=== PATIENT | female | born 1945 | race Caucasian/White ===

== ENCOUNTER 2020-08-11 11:10 | Outpatient (REF) | payer MEDICARE, SELFPAY ==
[2020-08-11 13:39] LABS: MANUAL DIFF FLAG NO
[2020-08-11 13:42] LABS: Basophils Percent Auto 0.5 % (0-2); Eosinophils Absolute Auto 0.2 X10*3/uL (0.0-0.4); Eosinophils Percent Auto 3.9 % (0-4); Hemoglobin 14.5 g/dl (12.0-16.0); Imm Gran Abs Auto 0.01 X10*3/uL (0.00-0.03); Imm Gran Pct Auto 0.2 % (0.0-0.4); Lymphocytes Absolute Auto 1.6 X10*3/uL (1.2-4.9); Lymphocytes Percent Auto 39.1 % (20-40); Mean Corpuscular HGB Conc 32.2 g/dl (31.0-35.0); Mean Platelet Volume 10.3 fL (9.4-12.3); Monocytes Absolute Auto 0.4 X10*3/uL (0.1-1.2); Neutrophils Absolute Auto 1.9 X10*3/uL (2.0-8.3); Neutrophils Percent Auto 47.3 % (45-73); Platelet Count 184 X10*3/uL (160-400); Red Blood Count 4.84 X10*6/uL (4.20-5.50); Red Cell Distribution Width 12.7 % (11.0-16.0); White Blood Count 4.1 X10*3/uL (4.8-10.8)
[2020-08-11 14:11] LABS: Alanine Aminotransferase 21 U/L (0-31); Albumin Level 4.2 g/dL (3.5-5.0); Alkaline Phosphatase 98 U/L (39-117); Anion Gap 12 (12-20); Aspartate Amino Transferase 32 U/L (5-31); Bilirubin Total 1.1 mg/dL (0.0-1.0); Blood Urea Nitrogen 14 mg/dL (9-16); C Reactive Protein 0.09 mg/dL (< or = 0.50); Calcium 9.5 mg/dL (8.4-10.2); Carbon Dioxide 29 mmol/L (22-29); Chloride 107 mmol/L (96-108); Estimated Glomerular Filt Rate > 60; Potassium 4.8 mmol/l (3.3-5.1); Sodium 143 mmol/L (135-145); Total Protein 6.4 g/dL (6.5-8.0)
[2020-08-11 14:20] LABS: Glucose Random 87 mg/dL (60-115)
[2020-08-11 14:35] LABS: Free T4 (Free Thyroxine) 1.33 ng/dL (0.71-1.85); Thyroid Stimulating Hormone 0.38 mIU/mL (0.32-4.0)
== END 2020-08-11 11:11 | disposition home or self-care (01) ==
LOC: HO.10HDL 11:10
PROVIDERS: Visit Provider Internal Medicine
DX: I10 Essential (primary) hypertension (principal); E03.9 Hypothyroidism, unspecified; R42 Dizziness and giddiness
CPT/HCPCS: 36415; 80053; 84439; 84443; 85025; 86140

== ENCOUNTER 2021-02-01 13:40 | Outpatient (REF) | payer MEDICARE, SELFPAY ==
--- NOTE | ~2021-02-01 | MM_ITS ---
EXAMINATION: MM SCREENING DIGITAL BREAST TOMOSYNTHESIS, BILATERAL CLINICAL INFORMATION: Screening. Asymptomatic. The lifetime risk of breast cancer based on the Tyrer-Cuzick Model is 2%. COMPARISON: Mammography: 06/03/2019, 04/10/2018, 03/27/2017 TECHNIQUE: Digital breast tomosynthesis is performed in both the craniocaudal and mediolateral oblique views along with computer-aided detection (CAD). Synthesized 2D images are generated from the tomosynthesis. FINDINGS: There are scattered areas of fibroglandular density (ACR BI-RADS breast composition Category b). There are no significant masses, abnormal calcifications, or other abnormalities. The axilla and skin contours are unremarkable. MM/MM tomosynthesis screening BI IMPRESSION: No mammographic evidence of malignancy. ASSESSMENT: BI-RADS 1: Negative RECOMMENDATION: Routine annual mammography screening. This patient's information was entered into a reminder system with a target due date for their next mammogram.
== END 2021-02-01 13:41 | disposition home or self-care (01) ==
LOC: HO.MAMMO 13:40
PROVIDERS: PCP Internal Medicine; Visit Provider Internal Medicine
DX: Z12.31 Encounter for screening mammogram for malignant neoplasm of breast (principal)
CPT/HCPCS: 77063; 77067

== ENCOUNTER 2021-02-11 10:17 | Outpatient (REF) | payer MEDICARE, SELFPAY ==
--- NOTE | ~2021-02-11 | XR_ITS ---
EXAMINATION: XR HAND, RIGHT CLINICAL INFORMATION: Right thumb pain. COMPARISON: 04/13/2014 TECHNIQUE: PA, lateral, and oblique views of the right hand. FINDINGS: There is osteopenia of visualized bones. No acute fracture or dislocation is evident. Joint spaces are generally maintained. There is stable degenerative narrowing of the triscaphe joint. There is mild spurring about the 1st carpometacarpal joint. Joint spaces are generally maintained. There is some degenerative spurring with erosion/subchondral cyst formation 1st interphalangeal joint. There is spurring about the 2nd distal interphalangeal joint. XR/XR hand RT min 3V IMPRESSION: Diffuse osteopenia. No acute fracture or dislocation. Some degenerative change seen involving the 1st carpometacarpal joint, triscaphe joint, 1st interphalangeal joint, and 2nd distal interphalangeal joint.
--- NOTE | ~2021-02-11 | XR_ITS ---
EXAMINATION: XR CHEST CLINICAL INFORMATION: Hypertension. COMPARISON: 06/20/2017 TECHNIQUE: Two views of the chest were obtained. FINDINGS: There is stable anterior elevation of the right hemidiaphragm with some linear scarring within the right middle lobe. No acute parenchymal disease, pneumothorax, or pleural effusion. Heart normal size. No evidence of pulmonary edema. There is scoliosis at the thoracolumbar junction convex right. XR/XR chest 2V IMPRESSION: No acute disease.
[2021-02-11 14:14] LABS: MANUAL DIFF FLAG NO
[2021-02-11 14:23] LABS: Basophils Percent Auto 0.5 % (0-2); Eosinophils Absolute Auto 0.1 X10*3/uL (0.0-0.4); Eosinophils Percent Auto 3.4 % (0-4); Hematocrit 45.8 % (37-47); Hemoglobin 14.9 g/dl (12.0-16.0); Imm Gran Abs Auto 0.01 X10*3/uL (0.00-0.03); Imm Gran Pct Auto 0.2 % (0.0-0.4); Lymphocytes Absolute Auto 1.4 X10*3/uL (1.2-4.9); Mean Corpuscular HGB Conc 32.5 g/dl (31.0-35.0); Mean Corpuscular Volume 92.2 fL (80-98); Mean Platelet Volume 10.7 fL (9.4-12.3); Monocytes Absolute Auto 0.4 X10*3/uL (0.1-1.2); Neutrophils Absolute Auto 2.1 X10*3/uL (2.0-8.3); Neutrophils Percent Auto 51.9 % (45-73); Platelet Count 180 X10*3/uL (160-400); Red Blood Count 4.97 X10*6/uL (4.20-5.50); Red Cell Distribution Width 12.6 % (11.0-16.0); White Blood Count 4.1 X10*3/uL (4.8-10.8)
[2021-02-11 14:36] LABS: Alanine Aminotransferase 17 U/L (0-31); Albumin Level 4.3 g/dL (3.5-5.0); Alkaline Phosphatase 91 U/L (39-117); Anion Gap 15 (12-20); Aspartate Amino Transferase 24 U/L (5-31); Bilirubin Total 1.3 mg/dL (0.0-1.0); Blood Urea Nitrogen 18 mg/dL (9-16); Calcium 10.1 mg/dL (8.4-10.2); Carbon Dioxide 27 mmol/L (22-29); Chloride 106 mmol/L (96-108); Cholesterol 161 mg/dL; Estimated Glomerular Filt Rate 60; Glucose Fasting 81 mg/dL (60-99); HDL Cholesterol 57 mg/dL; LDL Cholesterol Calculated 80 mg/dl; Potassium 4.5 mmol/L (3.3-5.1); Sodium 143 mmol/L (135-145); Total Protein 6.5 g/dL (6.5-8.0); Triglycerides 123 mg/dL
[2021-02-11 14:59] LABS: Free T4 (Free Thyroxine) 1.29 ng/dL (0.71-1.85)
== END 2021-02-11 10:18 | disposition home or self-care (01) ==
LOC: HO.10HDL 10:17
PROVIDERS: Visit Provider Internal Medicine
DX: M79.644 Pain in right finger(s) (principal); R49.0 Dysphonia; I10 Essential (primary) hypertension; E03.9 Hypothyroidism, unspecified
CPT/HCPCS: 36415; 71046; 73130; 80053; 80061; 84439; 84443; 85025

== ENCOUNTER → 2021-02-22 13:42 | Outpatient (BNVA) | payer MEDICARE, SELFPAY | PROVIDERS: PCP Internal Medicine; Visit Provider Orthopaedic Surgery | DX: M18.11 Unilateral primary osteoarthritis of first carpometacarpal joint, right hand (principal) | CPT/HCPCS: 99202 ==

== ENCOUNTER 2021-11-17 10:12 | Outpatient (REF) | payer MEDICARE, SELFPAY ==
[2021-11-17 13:49] LABS: MANUAL DIFF FLAG NO
[2021-11-17 14:02] LABS: Basophils Percent Auto 0.6 % (0-2); Eosinophils Absolute Auto 0.1 X10*3/uL (0.0-0.4); Eosinophils Percent Auto 3.9 % (0-4); Hematocrit 43.9 % (37.0-47.0); Hemoglobin 14.3 g/dl (12.0-16.0); Lymphocytes Absolute Auto 1.3 X10*3/uL (1.2-4.9); Lymphocytes Percent Auto 37.6 % (20-40); Mean Corpuscular HGB Conc 32.6 g/dl (31.0-35.0); Mean Platelet Volume 10.2 fL (9.4-12.3); Monocytes Absolute Auto 0.4 X10*3/uL (0.1-1.2); Monocytes Percent Auto 10.7 % (2-11); Neutrophils Absolute Auto 1.6 x10*3/uL (2.0-8.3); Neutrophils Percent Auto 47.2 % (45-73); Platelet Count 167 X10*3/uL (160-400); Red Blood Count 4.77 X10*6/uL (4.20-5.50); Red Cell Distribution Width 12.5 % (11.0-16.0); White Blood Count 3.4 X10*3/uL (4.8-10.8)
[2021-11-17 14:32] LABS: Free T4 (Free Thyroxine) 1.17 ng/dL (0.71-1.85); Thyroid Stimulating Hormone 0.38 uIU/mL (0.32-4.0)
[2021-11-17 14:38] LABS: Alanine Aminotransferase 16 U/L (0-31); Albumin Level 4.1 g/dL (3.5-5.0); Alkaline Phosphatase 86 U/L (39-117); Anion Gap 9 (12-20); Aspartate Amino Transferase 26 U/L (5-31); Bilirubin Total 1.3 mg/dL (0.0-1.0); Carbon Dioxide 29 mmol/L (22-29); Chloride 106 mmol/L (96-108); Cholesterol 155 mg/dL; Estimated Glomerular Filt Rate > 60; Glucose Fasting 90 mg/dL (60-99); HDL Cholesterol 58 mg/dL; LDL Cholesterol Calculated 75 mg/dl; Potassium 4.4 mmol/L (3.3-5.1); Sodium 140 mmol/L (135-145); Total Protein 6.3 g/dL (6.5-8.0); Triglycerides 114 mg/dL
[2021-11-17 15:45] LABS: Blood Urea Nitrogen 17 mg/dL (9-16); Calcium 10.2 mg/dL (8.4-10.2)
== END 2021-11-17 10:13 | disposition home or self-care (01) ==
LOC: HO.10HDL 10:12
PROVIDERS: Visit Provider Internal Medicine
DX: I10 Essential (primary) hypertension (principal); E03.9 Hypothyroidism, unspecified; E78.00 Pure hypercholesterolemia, unspecified
CPT/HCPCS: 36415; 80053; 80061; 84439; 84443; 85025

== ENCOUNTER 2021-12-06 08:27 | Day surgery (SDC) | payer MEDICARE, SELFPAY ==
[2021-11-26 09:16] VITALS: BMI 25.4
--- NOTE | 2021-12-02 16:35 | MHC.SHP ---
Pre-Procedural Eval Section A Date of Service: 12/02/21 The patient is an INPATIENT: No Changes since office visit: No Cold of Flu in the past 2 weeks, No New Medical Problems, No Changes in Medication and No Patient answered all questions The History & Physical has been completed within 30 days and I have reviewed it.: Yes Section B Chief Complaint: cataract left eye Allergies: Allergies Allergy/AdvReac Type Severity Reaction Status Date / Time No Known Allergies Allergy Verified 11/26/21 09:14 [No Known Allergies*] Plan Diagnosis/Plan: Unchanged I have reviewed the history and physical and performed a pertinent physical examination on my patient. No changes have occurred unless specified.
--- NOTE | 2021-12-03 13:47 | HP_ITS ---
DATE OF SERVICE: 12/06/2021 HISTORY OF PRESENT ILLNESS: The patient is a 76-year-old female who is seen 11/24/2021, for preop evaluation prior to cataract surgery scheduled for 12/06/[address] Clark. The patient states she feels well. PRESENT MEDICATIONS: Lisinopril 5 mg a day, levothyroxine 0.075 mg a day, simvastatin 20 mg a day, calcium and vitamin D. PAST MEDICAL HISTORY: Significant for vertigo, hypertension, hypothyroidism, elevated cholesterol, appendix at 17, one normal , fractured neck at 5 years old. No reported allergies to medicines. Some chronic back pain. History of left hip fracture, carpal tunnel syndrome, eczema, left biceps tendon irritation, left hip bursitis, and osteoarthritis of the thumbs. FAMILY HISTORY: Mother from lung cancer. Father from coronary artery disease. One brother from stomach cancer. One sister from lung cancer. She had Pfizer x2 as of last year, has had a booster I believe. SOCIAL HISTORY: She is . Retired. Has 1 son. She is a nonsmoker. REVIEW OF SYSTEMS: Essentially noncontributory except for occasional vertigo. PHYSICAL EXAMINATION: GENERAL: She is awake and alert, in no distress. VITAL SIGNS: Temperature 97.7, pulse 62, respirations 12, blood pressure 136/84, 99% oxygen saturation on room air. Weight is 128. She is 4 feet 11 inches tall. No distress. HEENT: Pupils equal. Pharynx clear. TMs clear. She has wax in the canals. HEART: Sounds S1 and S2. Regular rate. LUNGS: Clear. ABDOMEN: Soft, nontender. Positive bowel sounds. No HSM. EXTREMITIES: No clubbing, cyanosis, or edema. 1+ pulses. NEUROLOGIC: Nonfocal. Cranial nerves II through XII are intact. ASSESSMENT AND PLAN: She is medically stable for the proposed procedure. She had labs done on November 17, which are available on [facility]. MD [place] Mitchell/SELINAL / [id number]
--- NOTE | 2021-12-03 14:12 | P.CONAN_ITS ---
Documented by User: Lauren Bhagat NP 12/03/21 14:13 HPI - Anesthesia Eval Consult details Narrative: 76yo F for Left Cataract Extraction IOL Insertion PCP cleared No previous cataract on record [facility] Active Problems Active Problems: All Active Problems (Updated 12/02/21 @ 10:33 by Helen Wright, PRASAD) Arthritis of carpometacarpal (CMC) joint of right thumb (Acute) Past Medical History Medical History (Updated 12/02/21 @ 10:33 by Helen Wright RN) Cataract High blood pressure High cholesterol Hypothyroidism Surgical History Surgical History (Updated 11/26/21 @ 09:14 by Helen Wright RN) History of hip surgery Hx of appendectomy Hx of colonoscopy Social History Social History (Updated 02/22/21 @ 14:58 by SAEED Aaron) Are you a primary healthcare sales representative to a significant other at home: No Do you presently have visiting nurse or other home services: No Patient Tobacco Use Status: Never used Tobacco Use of substances other than those prescribed or required for medical reasons: No Have you been hit, kicked, punched, or otherwise hurt by someone within the past year? If so, by whom?: No Are you DNR?: No Advance Directives: No Advance Directives Information Provided: Yes Advance Directives on File: No Recently lost weight without trying: No Current occupational status: retired Current occupation: rt handed Meds Allergies Allergy/AdvReac Type Severity Reaction Status Date / Time No Known Allergies Allergy Verified 12/06/21 08:47 [No Known Allergies*] Home Medications Medication Instructions Recorded Confirmed Last Taken Type levothyroxine 25 mcg tablet 25 mcg PO DAILY 02/22/21 12/06/21 12/06/21 07:20 History lisinopril 2.5 mg tablet 2.5 mg PO DAILY 02/22/21 11/26/21 Unknown History simvastatin 5 mg tablet 5 mg PO DAILY 02/22/21 11/26/21 Unknown History Vitamin D3 11/26/21 11/26/21 Unknown History calcium 11/26/21 Unknown History Exam Exam Date and Time: December 03, 2021 1412 Height,Weight and Vital Signs: Height 4 ft 11.5 in Weight 58.06 kg Pertinent Lab Results Pertinent Lab Results: Laboratory Tests 02/09/22 02/09/22 10:20 10:20 WBC 3.4 L Hgb 14.3 Hct 43.9 Plt Count 167 Sodium 140 Potassium 4.4 Chloride 106 Carbon Dioxide 29 BUN 17 H Creatinine 0.91 Assessment and Plan Assessment Anesthesia Assessment: Chart Reviewed Documented by User: Jerilyn Mathew MD 12/06/21 09:23 [facility] Past Medical History Medical History (Updated 12/02/21 @ 10:33 by Helen Wright, PRASAD) Cataract High blood pressure High cholesterol Hypothyroidism Family History Family history of problems with anesthesia: No Surgical History Surgical History (Updated 11/26/21 @ 09:14 by Helen Wright RN) History of hip surgery Hx of appendectomy Hx of colonoscopy History of Problems with Anesthesia: No Social History Social History (Updated 02/22/21 @ 14:58 by Elisha Raygoza [facility] Are you a primary healthcare sales representative to a significant other at home: No Do you presently have visiting nurse or other home services: No Patient Tobacco Use Status: Never used Tobacco Use of substances other than those prescribed or required for medical reasons: No Have you been hit, kicked, punched, or otherwise hurt by someone within the past year? If so, by whom?: No Are you DNR?: No Advance Directives: No Advance Directives Information Provided: Yes Advance Directives on File: No Recently lost weight without trying: No Current occupational status: retired Current occupation: rt handed Meds Allergies Allergy/AdvReac Type Severity Reaction Status Date / Time No Known Allergies Allergy Verified 12/06/21 08:47 [No Known Allergies*] Home Medications Medication Instructions Recorded Confirmed Last Taken Type levothyroxine 25 mcg tablet 25 mcg PO DAILY 02/22/21 12/06/21 12/06/21 07:20 History lisinopril 2.5 mg tablet 2.5 mg PO DAILY 02/22/21 11/26/21 Unknown History simvastatin 5 mg tablet 5 mg PO DAILY 02/22/21 11/26/21 Unknown History Vitamin D3 11/26/21 11/26/21 Unknown History calcium 11/26/21 Unknown History Exam Airway Mallampati Class: II TM Dist: >3cm Neck ROM: Full Heart: marguerite Lungs: cta Assessment and Plan Assessment Anesthesia Assessment: Anesthesia Plan Discussed and Chart Reviewed Final Anesthetic Review Family History of Problems with Anesthesia: No History of Problems with Anesthesia: No NPO: Yes ASA Class: II Final Preanesthetic Review: No Changes in Pt Med Stat, Meds/Allgs Chart Reviewed and Consent Obtained/Reviewed Patient Risk: Intermediate Procedure Risk: Intermediate Anesthetic Plan Anesthetic Plan: MAC: Disposition: Standard PACU
[2021-12-06 08:48] VITALS: BP 145/64; PULSE 48; RESP 16; TEMP 36.6; O2SAT 99
[2021-12-06] MEDS: Tetracaine HCl/PF 0.5% Oph Sol 4 ML DROPS 1 DROP EYE-LEFT (08:51)
[2021-12-06] MEDS: Tropicamide 1 % Ophth Sol 3 ML BTL 1 DROP EYE-LEFT ×3 (08:52→09:04)
[2021-12-06] MEDS: Phenylephrine HCL 2.5% Oph SoL 2 ML BOTTLE 1 DROP EYE-LEFT ×3 (08:56→09:08)
[2021-12-06] MEDS: Lactated Ringers 500 ML 50 ML IV (09:06)
--- NOTE | 2021-12-06 10:13 | HO.PNOPHT ---
Ophthalmology Procedure Procedure Date of Service: 12/06/21 Ophthalmology Viscoelastic: Healepi Duet Dual Pack Pro Ophthalmology Lenses: TECNIS US7259 (17.5) Procedure Notes: PREOPERATIVE DIAGNOSIS: Decreased visual acuity left eye secondary to cataract POSTOPERATIVE DIAGNOSIS: Same PROCEDURE: Left cataract extraction with intraocular lens insertion SURGEON: Hussein Clark M.D. ANESTHESIA: Topical/MAC ESTIMATED BLOOD LOSS: None COMPLICATIONS: None After obtaining informed consent, the patient was brought to the operation room suite and placed in the supine position. After adequate sedation per anesthesia, topical drops of Tetracaine were given to the left eye. The eye was then prepped and draped in the usual sterile fashion. The operating room microscope was then positioned over the operative eye and a lid speculum placed. A paracentesis was created. Viscoelastic was then instilled into the anterior chamber. A three plane incision was then created temporally, utilizing a 2.85 mm keratome. Capsulotomy forceps were then utilized to create a circular tear capsulotomy. Hydrodissection and hydrodelineation were carried out until adequate mobilization of the nucleus occurred. Phacoemulsification was then utilized to remove the dense central nucleus followed by removal of the cortical material utilizing the automated aspiration irrigation unit. Viscoat elastic was instilled into the posterior capsular bag followed by placement of a posterior chamber intraocular lens without difficulty. The residual Viscoat elastic was then removed utilizing the automated IA machine. The wound was check and found to be watertight. The patient tolerated the procedure well and the lid speculum was removed. Intracameral injection of Vigamox 0.1 mL followed by a subtenon injection of Kenalog-40 0.2 mL were administered. The patient will be seen in the a.m.
[2021-12-06 10:33] VITALS: BP 130/59; PULSE 48; RESP 16; TEMP 36.3; O2SAT 97
== END 2021-12-06 10:51 | disposition home or self-care (01) ==
PROVIDERS: PCP Internal Medicine; Visit Provider Ophthalmology
PROC: (CPT 66985; principal; 2021-12-06 10:20)
DX: H25.12 Age-related nuclear cataract, left eye (principal); H52.4 Presbyopia; H35.54 Dystrophies primarily involving the retinal pigment epithelium; I10 Essential (primary) hypertension; E03.9 Hypothyroidism, unspecified; E78.00 Pure hypercholesterolemia, unspecified; Z79.899 Other long term (current) drug therapy
CPT/HCPCS: 66984; J2250; J3010; J3300; V2632

== ENCOUNTER 2021-12-20 07:11 | Day surgery (SDC) | payer MEDICARE, SELFPAY ==
[2021-11-26 09:18] VITALS: BMI 25.4
--- NOTE | 2021-12-16 12:46 | MHC.SHP ---
Pre-Procedural Eval Section A Date of Service: 12/16/21 The patient is an INPATIENT: No Changes since office visit: No Cold of Flu in the past 2 weeks, No New Medical Problems, No Changes in Medication and No Patient answered all questions The History & Physical has been completed within 30 days and I have reviewed it.: Yes Section B Chief Complaint: cataract right eye Allergies: Allergies Allergy/AdvReac Type Severity Reaction Status Date / Time No Known Allergies Allergy Verified 12/06/21 08:47 [No Known Allergies*] Plan Diagnosis/Plan: Unchanged I have reviewed the history and physical and performed a pertinent physical examination on my patient. No changes have occurred unless specified.
--- NOTE | 2021-12-17 09:03 | P.CONAN_ITS ---
Documented by User: Lauren Bhagat NP 12/17/21 09:03 HPI - Anesthesia Eval Consult details Narrative: 76yo F for Right Cataract Multifocal with IOL Insertion PCP cleared Left eye done 12/06/21 with MAC: Fent 50, Midaz 1 PMFSH Active Problems Active Problems: All Active Problems (Updated 12/02/21 @ 10:33 by Helen Wright, PRASAD) Arthritis of carpometacarpal (CMC) joint of right thumb (Acute) Past Medical History Medical History (Updated 12/02/21 @ 10:33 by Helen Wright, PRASAD) Cataract High blood pressure High cholesterol Hypothyroidism Family History Family history of problems with anesthesia: No Surgical History Surgical History (Updated 11/26/21 @ 09:14 by Helen Wright RN) History of hip surgery Hx of appendectomy Hx of colonoscopy History of Problems with Anesthesia: No Social History Social History (Updated 02/22/21 @ 14:58 by SAEED Aaron) Are you a primary primary care coordinator to a significant other at home: No Do you presently have visiting nurse or other home services: No Patient Tobacco Use Status: Never used Tobacco Use of substances other than those prescribed or required for medical reasons: No Have you been hit, kicked, punched, or otherwise hurt by someone within the past year? If so, by whom?: No Are you DNR?: No Advance Directives: No Advance Directives Information Provided: Yes Advance Directives on File: No Current occupational status: retired Current occupation: rt handed Meds Allergies Allergy/AdvReac Type Severity Reaction Status Date / Time No Known Allergies Allergy Verified 12/06/21 08:47 [No Known Allergies*] Home Medications Medication Instructions Recorded Confirmed Last Taken Type levothyroxine 25 mcg tablet 25 mcg PO DAILY 02/22/21 12/06/21 12/06/21 07:20 History lisinopril 2.5 mg tablet 2.5 mg PO DAILY 02/22/21 11/26/21 Unknown History simvastatin 5 mg tablet 5 mg PO DAILY 02/22/21 11/26/21 Unknown History Vitamin D3 11/26/21 11/26/21 Unknown History calcium 11/26/21 Unknown History Exam Exam Date and Time: December 17, 2021 0903 Height,Weight and Vital Signs: Height 4 ft 11.5 in Weight 58.06 kg Assessment and Plan Assessment Anesthesia Assessment: Chart Reviewed Final Anesthetic Review Family History of Problems with Anesthesia: No History of Problems with Anesthesia: No Documented by User: Martinez Hernandez MD 12/20/21 08:14 [facility] Past Medical History Medical History (Updated 12/02/21 @ 10:33 by Helen Wright, PRASAD) Cataract High blood pressure High cholesterol Hypothyroidism Surgical History Surgical History (Updated 11/26/21 @ 09:14 by Helen Wright, PRASAD) History of hip surgery Hx of appendectomy Hx of colonoscopy Social History Social History (Updated 02/22/21 @ 14:58 by SAEED Aaron) Are you a primary primary care coordinator to a significant other at home: No Do you presently have visiting nurse or other home services: No Patient Tobacco Use Status: Never used Tobacco Use of substances other than those prescribed or required for medical reasons: No Have you been hit, kicked, punched, or otherwise hurt by someone within the past year? If so, by whom?: No Are you DNR?: No Advance Directives: No Advance Directives Information Provided: Yes Advance Directives on File: No Current occupational status: retired Current occupation: rt handed Meds Allergies Allergy/AdvReac Type Severity Reaction Status Date / Time No Known Allergies Allergy Verified 12/06/21 08:47 [No Known Allergies*] Home Medications Medication Instructions Recorded Confirmed Last Taken Type levothyroxine 25 mcg tablet 25 mcg PO DAILY 02/22/21 12/06/21 12/06/21 07:20 History lisinopril 2.5 mg tablet 2.5 mg PO DAILY 02/22/21 11/26/21 Unknown History simvastatin 5 mg tablet 5 mg PO DAILY 02/22/21 11/26/21 Unknown History Vitamin D3 11/26/21 11/26/21 Unknown History calcium 11/26/21 Unknown History Exam Airway Mallampati Class: II TM Dist: >3cm Neck ROM: Full Partial: Upper Loose/Missing/Broken Teeth: Yes Heart: [id number] Lungs: cta b/l Assessment and Plan Assessment Anesthesia Assessment: Anesthesia Plan Discussed Final Anesthetic Review NPO: Yes ASA Class: III Final Preanesthetic Review: No Changes in Pt Med Stat, Meds/Allgs Chart Reviewed, Consent Obtained/Reviewed and Anes Risks/Benef Reviewed Patient Risk: Intermediate Procedure Risk: Low Assessment/Block/Sedation in SS: Assess/Block/Sedation-SS Anesthetic Plan Anesthetic Plan: MAC:, Regional Block and Agree w/ Assess. and Plan Disposition: Standard PACU
--- NOTE | 2021-12-20 08:09 | PC.NURSE ---
md dacosta aware fo low heart rate. asymptomatic. a week from monday patient has an appt to have a air sampling and monitoring to be applied.
[2021-12-20] MEDS: Tetracaine HCl/PF 0.5% Oph Sol 4 ML DROPS 1 DROP EYE-RIGHT (08:12)
[2021-12-20] MEDS: Tropicamide 1 % Ophth Sol 3 ML BTL 1 DROP EYE-RIGHT ×3 (08:13→08:18)
[2021-12-20] MEDS: Phenylephrine HCL 2.5% Oph SoL 2 ML BOTTLE 1 DROP EYE-RIGHT ×3 (08:14→08:20)
[2021-12-20] MEDS: Lactated Ringers 500 ML 50 ML IV (08:18)
--- NOTE | 2021-12-20 09:22 | PC.NURSE ---
called md newell office and they are unable to sign off on the draft due to computer problems. they have already called IT for help. they have been working on it since monday. patiet still remainsmedcially clerted per md evans office. and per his history and physical note.
--- NOTE | 2021-12-20 09:27 | PC.NURSE ---
md dacosta aware of patients history and physical in draft form.
--- NOTE | 2021-12-20 09:40 | HO.PNOPHT ---
Ophthalmology Procedure Procedure Date of Service: 12/20/21 Ophthalmology Viscoelastic: Healepi Duet Dual Pack Pro Ophthalmology Lenses: TECNIS [id number] (17.5) Procedure Notes: PREOPERATIVE DIAGNOSIS: Decreased visual acuity right eye secondary to cataract POSTOPERATIVE DIAGNOSIS: Same PROCEDURE: Right cataract extraction with intraocular lens insertion SURGEON: Hussein Clark M.D. ANESTHESIA: Topical/MAC ESTIMATED BLOOD LOSS: None COMPLICATIONS: None After obtaining informed consent, the patient was brought to the operating room suite and placed in the supine position. After adequate sedation per anesthesia, topical drops of Tetracaine were given to the right eye. The eye was then prepped and draped in the usual sterile fashion. The operating room microscope was then positioned over the operative eye and a lid speculum placed. A paracentesis was created. Viscoelastic was then instilled into the anterior chamber. A three plane incision was then created temporally, utilizing a 2.85 mm keratome. Capsulotomy forceps were then utilized to create a circular tear capsulotomy. Hydrodissection and hydrodelineation were carried out until adequate mobilization of the nucleus occurred. Phacoemulsification was then utilized to remove the dense central nucleus followed by removal of the cortical material utilizing the automated aspiration irrigation unit. Viscoelastic was instilled into the posterior capsular bag followed by placement of a posterior chamber intraocular lens without difficulty. The residual Viscoelastic was then removed utilizing the automated IA machine. The wound was checked and found to be watertight. The patient tolerated the procedure well and the lid speculum was removed. Intracameral injection of Vigamox 0.1 mL followed by a subtenon injection of Kenalog-40 0.2 mL were administered. The patient will be seen in the a.m.
[2021-12-20 10:05] VITALS: BP 136/62; PULSE 51; RESP 16; TEMP 36.6; O2SAT 98
== END 2021-12-20 10:12 | disposition home or self-care (01) ==
PROVIDERS: PCP Internal Medicine; Visit Provider Ophthalmology
PROC: (CPT 66985; principal; 2021-12-20 09:50)
DX: H25.11 Age-related nuclear cataract, right eye (principal); H52.4 Presbyopia; H35.54 Dystrophies primarily involving the retinal pigment epithelium; I10 Essential (primary) hypertension; E03.9 Hypothyroidism, unspecified; E78.00 Pure hypercholesterolemia, unspecified; Z79.899 Other long term (current) drug therapy
CPT/HCPCS: 66984; J2250; J3300; V2632

== ENCOUNTER → 2021-12-27 14:41 | Outpatient (REF) | payer MEDICARE, SELFPAY ==
--- NOTE | 2021-12-27 15:04 | HM_ITS ---
* Total monitoring time 3 days 5 hours. * Underlying rhythm is sinus. Average rate 50/Min. Range 33 to 130/Min. About 63% of the time, rate less than 60/Min. * No atrial fibrillation or flutter or AV blocks or pauses. * Rare supraventricular and ventricular ectopy with minimal burden. * No patient events. MTDD
== END ==
LOC: HO.CARD 14:41
PROVIDERS: Visit Provider Internal Medicine
DX: R00.1 Bradycardia, unspecified (principal)
CPT/HCPCS: 93242

== ENCOUNTER 2022-02-07 09:02 | Outpatient (REF) | payer MEDICARE, SELFPAY ==
[2022-02-07 10:17] LABS: MANUAL DIFF FLAG NO
[2022-02-07 10:29] LABS: Basophils Percent Auto 0.6 % (0-2); Eosinophils Absolute Auto 0.1 X10*3/uL (0.0-0.4); Eosinophils Percent Auto 3.4 % (0-4); Hematocrit 44.5 % (37.0-47.0); Hemoglobin 14.5 g/dl (12.0-16.0); Lymphocytes Absolute Auto 1.4 X10*3/uL (1.2-4.9); Lymphocytes Percent Auto 38.5 % (20-40); Mean Corpuscular HGB Conc 32.6 g/dl (31.0-35.0); Mean Corpuscular Hemoglobin 30.5 pg (27.0-33.0); Mean Corpuscular Volume 93.5 fL (80.0-98.0); Monocytes Absolute Auto 0.4 X10*3/uL (0.1-1.2); Monocytes Percent Auto 10.7 % (2-11); Neutrophils Absolute Auto 1.7 x10*3/uL (2.0-8.3); Neutrophils Percent Auto 46.8 % (45-73); Platelet Count 170 X10*3/uL (160-400); Red Blood Count 4.76 X10*6/uL (4.20-5.50); White Blood Count 3.6 X10*3/uL (4.8-10.8)
[2022-02-07 10:58] LABS: Lactate Dehydrogenase 147 U/L (122-220)
== END 2022-02-07 09:03 | disposition home or self-care (01) ==
LOC: HO.10HDL 09:02
PROVIDERS: Visit Provider Internal Medicine
DX: I10 Essential (primary) hypertension (principal); D72.819 Decreased white blood cell count, unspecified
CPT/HCPCS: 36415; 83615; 85025

== ENCOUNTER 2022-02-09 09:40 | Outpatient (REF) | payer MEDICARE, SELFPAY ==
--- NOTE | ~2022-02-09 | MM_ITS ---
EXAMINATION: MM SCREENING DIGITAL BREAST TOMOSYNTHESIS, BILATERAL CLINICAL INFORMATION: Screening. Asymptomatic. The lifetime risk of breast cancer based on the Tyrer-Cuzick Model is 3%. COMPARISON: Mammography: 02/01/2021, 06/03/2019, 04/10/2018 TECHNIQUE: Digital breast tomosynthesis is performed in both the craniocaudal and mediolateral oblique views along with computer-aided detection (CAD). Synthesized 2D images are generated from the tomosynthesis. FINDINGS: There are scattered areas of fibroglandular density (ACR BI-RADS breast composition Category b). There are no significant masses, abnormal calcifications, or other abnormalities. Fibronodular parenchymal pattern is similar to prior studies. No developing density or architectural abnormality. The axilla are unremarkable. No significant changes. MM/MM tomosynthesis screening BI IMPRESSION: No mammographic evidence of malignancy. ASSESSMENT: BI-RADS 1: Negative RECOMMENDATION: Routine annual mammography screening. This patient's information was entered into a reminder system with a target due date for their next mammogram.
== END 2022-02-09 09:41 | disposition home or self-care (01) ==
LOC: HO.MAMMO 09:40
PROVIDERS: Visit Provider Advanced Practice Midwife
DX: Z12.31 Encounter for screening mammogram for malignant neoplasm of breast (principal)
CPT/HCPCS: 77063; 77067

== ENCOUNTER → 2022-06-20 10:35 | Outpatient (BNVA) | payer MEDICARE, SELFPAY | PROVIDERS: PCP Internal Medicine; Referring Provider Internal Medicine; Visit Provider Internal Medicine | DX: R00.1 Bradycardia, unspecified (principal); R55 Syncope and collapse; R07.2 Precordial pain; R03.0 Elevated blood-pressure reading, without diagnosis of hypertension | CPT/HCPCS: 93005; 99202 ==

== ENCOUNTER 2022-07-10 08:29 | Emergency (ER) | payer MEDICARE, SELFPAY ==
[2022-07-10 08:41] VITALS: BP 109/73; PULSE 68; RESP 18; TEMP 36.9; O2SAT 98; BMI 24.4
[2022-07-10 09:05] LABS: Strep A Nucleic Acid Negative (Negative)
[2022-07-10 09:06] LABS: COVID-19 Test Positive (Negative); IDNOW Serial# 55D5AD1C
--- NOTE | 2022-07-10 09:34 | ED.GENADULT ---
HPI - General Adult General Chief complaint: General Medical Stated complaint: Covid + Throat, ear pain Time Seen by Provider: 07/10/22 09:34 History of Present Illness HPI narrative: Patient complains of sore throat runny nose mild cough body aches and fatigue x1 day, her has COVID and just completed a treatment with Paxlovid and feels better but she did take a home test and tested positive for COVID this morning Related Data Home Medications Medication Instructions Recorded Confirmed Vitamin D3 11/26/21 06/20/22 calcium 11/26/21 06/20/22 levothyroxine 75 mcg tablet 75 mcg PO DAILY 06/20/22 06/20/22 losartan 25 mg tablet 25 mg PO DAILY 06/20/22 06/20/22 simvastatin 20 mg tablet 20 mg PO DAILY 06/20/22 06/20/22 Previous Rx's Medication Instructions Recorded acetaminophen 500 mg tablet 1,000 mg PO QID PRN pain #30 tabs 07/10/22 naproxen 500 mg tablet (Naprosyn) 500 mg PO BID PRN pain #14 tabs 07/10/22 nirmatrelvir 300 mg (150 mg See Rx Instructions PO .COMPLEX 07/10/22 x2)-ritonavir 100 mg tablet,dose #30 ea pack(EUA) (Paxlovid) Allergies Allergy/AdvReac Type Severity Reaction Status Date / Time No Known Allergies Allergy Verified 06/20/22 10:44 [No Known Allergies*] Review of Systems Review of Systems: Positive for sore throat body aches cough Negatives no fever no chills no dizziness no weakness no headache no confusion no stiff neck no difficulty breathing or swallowing no chest pain no shortness of breath no abdominal pain no nausea vomiting or diarrhea no dysuria no skin rash Yes all other systems are reviewed and are negative PMF Past Medical History Source: nursing notes reviewed Medical History (Updated 07/10/22 @ 10:40 by VERONICA Ruby) Cataract High blood pressure High cholesterol Hypothyroidism Surgical History History of hip surgery Hx of appendectomy Hx of colonoscopy Family History Family History (Updated 06/20/22 @ 10:45 by NILDA Rosenbaum) Father Heart attack Mother No problems noted. Social History Social History Are you a primary medicare insurance specialist to a significant other at home: No Do you presently have visiting nurse or other home services: No Patient Tobacco Use Status: Never used Tobacco Current occupational status: retired Current occupation: rt handed Physical Exam ED Vital Signs: Vital Signs - 24 hr 07/10/22 08:41 Temperature 98.4 F Pulse Rate 68 Respiratory Rate 18 Blood Pressure 109/73 Pulse Oximetry 98 Oxygen Delivery Method Room Air BMI result Body Mass Index 24.4 General appearance no distress Eyes no redness or discharge The nose no sinus tenderness The pharynx is clear without redness swelling or exudat, mucous membranes are moist, voice is normal The neck is supple Chest clear to auscultation bilateral Heart no murmur Abdomen is soft and nontender Extremities full range of motion x4 Skin no rash Course Course Course Narrative: COVID test was positive, and otherwise well-appearing patient was discharged with prescription for Paxil [place] after checking for possible interactions Medical Decision Making Lab Data Labs: Lab Results 07/10/22 07/10/22 Range/Units 08:46 08:46 COVID-19 (TIMA) Positive A (Negative) COVID-19 Clin Com See Note S. pyogenes GrpA ALLI Negative (Negative) Discharge Plan Discharge Clinical Impression: COVID-19 Patient Disposition: Home, Self-Care Additional Instructions: Your symptoms are from COVID and I am writing a prescription for Paxlovid DO NOT TAKE YOUR LEVOTHYROXINE THYROID MED, OR YOUR SIMVASTATIN CHOLESTEROL MEDICATION FOR 5 DAYS IT MAY INTERACT WITH THE PAXIL OVID AND CAUSE PROBLEMS It is okay to take her losartan Follow with primary doctor as needed Return to the ER any time any worse condition or any concerns Prescriptions: New Paxlovid (EUA) 300 mg (150 mg x 2)-100 mg tablets,dose pack See Rx Instructions .ROUTE .COMPLEX Qty: 30 0RF Rx Instructions: take TWO 150 mg tablets of nirmatrelvir with ONE 100 mg tablet of ritonavir twice daily for 5 days acetaminophen 500 mg tablet 1,000 mg PO QID PRN (Reason: pain) Qty: 30 0RF naproxen [Naprosyn] 500 mg tablet 500 mg PO BID PRN (Reason: pain) Qty: 14 0RF No Action Vitamin D3 calcium simvastatin 20 mg tablet 20 mg PO DAILY levothyroxine 75 mcg tablet 75 mcg PO DAILY losartan 25 mg tablet 25 mg PO DAILY Interventions: ED Discharge Assessment Last Done: 07/10/22 10:48 Discharge Date/Time: 07/10/22 10:49
--- OUTSIDE RECORDS SUMMARY | 2022-07-10 09:36 | XMS_ITS | Continuity of Care Document ---
:1945 Author Organization [facility] Address [address] [place] [id number] Care Team Providers Name Role Phone Cayetano Morris MD Primary Care Physician Encounter [facility] Date(s): 02/22/22 - 02/22/[address] [id number] Discharge Disposition: A-D/C Home Attending Physician: Delicia Osorio MD Admitting Physician: Delicia Osorio MD Referring Physician: Delicia Osorio MD Allergies, Adverse Reactions, Alerts No Known Allergies Immunizations Given and Recorded Vaccine Date Status Refusal Reason SARS-CoV-2 (COVID-19) mRNA BNT-162b2 vac 12/09/20 Given SARS-CoV-2 (COVID-19) mRNA BNT-162b2 vac 11/18/20 Given Medications levothyroxine 0.05 mg oral tablet 1 tablet = 50 mcg, By Mouth, Daily, 0 Refills, Maintenance, 02/22/22 12:22:00 EDT, Partial fill uponpatient request if the prescription is for a schedule II opioid drug. Start Date: 02/22/22 Status: Orderedsimvastatin 5 mg oral tablet 1 tablet = 5 mg, By Mouth, Daily at bedtime, 0 Refills, Maintenance, 02/22/22 12:22:00 EDT, Partial fill upon patient request if the prescription is for a schedule II opioid drug. Start Date: 02/22/22 Status: Ordered Vital Signs Most recent to oldest 1 2 3 [Reference Range]: Weight 58.2 kg (02/22/22 12:24 PM) Oxygen Saturation [94-100 %] 100 % 100 % 98 % (02/22/22 1:45 PM) (02/22/22 1:00 PM) (02/22/22 12: 45 PM) Pulse Rate [55-90 bpm] 52 bpm *L* (02/22/22 12:24 PM) Blood Pressure [90-138/55-84 154/63 mm Hg 164/62 mm Hg 147 /62 mm Hg mm Hg] *H* *H* *H* (02/22/22 1:45 PM) (02/22/22 1:00 PM) (02/22/22 12: 45 PM) Respiratory Rate [16-30 19 br/min 18 br/min 6 br/min br/min] (02/22/22 1:45 PM) (02/22/22 1:00 PM) *L* (02/22/22 12:45 P M) Temperature [96.8-100.4 97.5 DegF 98.6 DegF DegF] (02/22/22 1:45 PM) (02/22/22 12:24 PM) Liters per Minute 3 L/min (02/22/22 12:45 PM) Mode of Delivery (Oxygen) Nasal cannula Room air Nasal cannula (02/22/22 2:00 PM) (02/22/22 1:45 PM) (02/22/22 1:0 0 PM) Blood pressure sites Arm, right Arm, right Arm, right (02/22/22 1:45 PM) (02/22/22 1:00 PM) (02/22/22 12: 45 PM) Temperature Route Temporal Temporal (02/22/22 1:45 PM) (02/22/22 12:24 PM) Weight Obtained Via Standing scale (02/22/22 12:24 PM)
== END 2022-07-10 10:49 | disposition home or self-care (01) ==
PROVIDERS: Emergency Provider Emergency Medicine Emergency Medical Services; PCP Internal Medicine
DX: U07.1 COVID-19 (principal); R05.9 Cough, unspecified; Z79.899 Other long term (current) drug therapy
CPT/HCPCS: 36415; 87635; 87651; 99282; 99283

== ENCOUNTER 2022-07-22 08:56 | Outpatient (REF) | payer MEDICARE, SELFPAY ==
[2022-07-22 09:06] LABS: MANUAL DIFF FLAG NO
[2022-07-22 09:17] LABS: Basophils Percent Auto 0.6 % (0-2); Eosinophils Absolute Auto 0.2 X10*3/uL (0.0-0.4); Eosinophils Percent Auto 3.5 % (0-4); Hematocrit 43.6 % (37.0-47.0); Hemoglobin 14.4 g/dl (12.0-16.0); Imm Gran Abs Auto 0.01 X10*3/uL (0.00-0.03); Imm Gran Pct Auto 0.2 % (0.0-0.4); Lymphocytes Absolute Auto 1.4 X10*3/uL (1.2-4.9); Lymphocytes Percent Auto 27.9 % (20-40); Mean Corpuscular Hemoglobin 29.9 pg (27.0-33.0); Mean Corpuscular Volume 90.5 fL (80.0-98.0); Mean Platelet Volume 9.4 fL (9.4-12.3); Monocytes Absolute Auto 0.5 X10*3/uL (0.1-1.2); Neutrophils Absolute Auto 2.8 x10*3/uL (2.0-8.3); Neutrophils Percent Auto 56.8 % (45-73); Platelet Count 194 X10*3/uL (160-400); Red Blood Count 4.82 X10*6/uL (4.20-5.50); Red Cell Distribution Width 12.7 % (11.0-16.0); White Blood Count 4.8 X10*3/uL (4.8-10.8)
[2022-07-22 09:49] LABS: Alanine Aminotransferase 13 U/L (0-31); Albumin Level 4.1 g/dL (3.5-5.0); Alkaline Phosphatase 90 U/L (39-117); Anion Gap 14 (12-20); Aspartate Amino Transferase 24 U/L (5-31); Bilirubin Total 0.8 mg/dL (0.0-1.0); Blood Urea Nitrogen 14 mg/dL (9-16); Calcium 9.6 mg/dL (8.4-10.2); Carbon Dioxide 27 mmol/L (22-29); Chloride 106 mmol/L (96-108); Estimated Glomerular Filt Rate 60; Glucose Random 93 mg/dL (60-115); Potassium 5.2 mmol/L (3.3-5.1); Sodium 142 mmol/L (135-145); Total Protein 6.3 g/dL (6.5-8.0)
[2022-07-22 10:13] LABS: Free T4 (Free Thyroxine) 1.16 ng/dL (0.71-1.85); Thyroid Stimulating Hormone 3.22 uIU/mL (0.32-4.0)
== END 2022-07-22 08:57 | disposition home or self-care (01) ==
LOC: HO.LAB 08:56
PROVIDERS: PCP Internal Medicine; Visit Provider Internal Medicine
DX: I10 Essential (primary) hypertension (principal); E03.9 Hypothyroidism, unspecified
CPT/HCPCS: 36415; 80053; 84439; 84443; 85025

== ENCOUNTER → 2022-07-27 09:10 | Outpatient (REF) | payer MEDICARE, SELFPAY ==
--- NOTE | 2022-07-27 09:13 | CA_ITS ---
Acquisition Time: 2022-07-27 10:40:21 Total Exercise Time: 00:03:43 Test Indications: Syncope Medications: Protocol: MARTIN Max HR: 136 BPM 95% of Pred: 143 BPM Max BP: 204/082 mmHG Max Work Load: 5.4 METS Exercise stress test with exercise 3 min 43 sec of martin protocol, achieving 93% MPHR ( 85% MPHR at 3 min), with knee discomfort and request to stop, with mild sob, no chest discomfort, with isolated PACs and once ventricular cuplet, with baseline BP 154/62 which devon to 204/82 with exercise, with normal chronotropic response to exercise, without EKG changes meeting criteria for ischemia at achieved workload. In recovery her BP came down to 146/60 and heart rate returned to 61b/min. Test reviewed with Dr Ortega Referred By: Gabino Verdugo Overread By: ANDRES BAKER
--- NOTE | 2022-07-27 09:13 | CA_ITS ---
Transthoracic Echocardiogram Patient (Last, First, Middle): Glenda West, Gender: Female Date of : 1945 Age: 77 Procedure Date: 07/27/2022 Procedure Type: Transthoracic Echocardiogram Location: OP Height: 149.86 cm Weight: 57.61 kg BSA: 1.52 m2 Heart Rate: 56 bpm BP: 118 / 68 mmHg Electrical Prospecting Supervisor: SB Referring MD: Gabino Verdugo MD Symptoms: R55 - Syncope and collapse Study Quality: Adequate ECG Rhythm: Bradycardia Conclusions: - The left ventricular systolic function is normal. The calculated ejection fraction is 64% by biplane method. - No obvious valvular pathology seen on this study. Findings Left Ventricle Normal left ventricular cavity size. There is normal left ventricular wall thickness. The left ventricular systolic function is normal. The calculated ejection fraction is 64% by biplane method. There is no evidence of regional wall motion abnormalities. Diastolic function is normal for age. LV peak GLS -16.5% Right Ventricle Normal right ventricular cavity size. There is mildly decreased right ventricular systolic function. Atria Both atria are normal in size. Aortic Valve There is a normal trileaflet aortic valve. There is no aortic valve stenosis. There is no aortic valve regurgitation. Mitral Valve There is mild mitral annular calcification. There is no mitral valve regurgitation. There is no mitral valve stenosis. Pulmonic Valve The pulmonic valve is likely normal. Tricuspid Valve Normal tricuspid valve structure. There is trace tricuspid valve regurgitation. There is no evidence of pulmonary hypertension. Great Vessels The aortic annulus, sino tubular ridge, and asc aorta are normal in size. Venous The inferior vena cava was not well visualized. Pericardium/Pleural There is no evidence of pericardial effusion. Prior Study Comparison No prior study available for comparison. Recommendations, Care & Conclusions No obvious valvular pathology seen on this study. Measurements 2D Linear Measurements IVSd: 0.99 0.6-0.9/0.6-1.0 cm LVIDd: 4.57 3.9-5.3/4.2-5.9 cm LVIDd Index: 3.01 2.4-3.2/2.2-3.1 cm/m2 LVIDs: 2.61 2.0-3.6 cm LVPWd: 0.67 0.7-1.1 cm LA Diam: 3.50 2.7-3.8/3.0-4.0 cm LAIDs Index: 2.30 1.5-2.3 cm/m2 LV Mass: 152.94 67-162/88-224 g LV Mass Index: 100.62 43-95/49-115 g/m2 LVOT Diam: 1.90 3.0+(-)1.3 cm 2D Systolic Function EF 4C: 68.30 >55% EF 2C: 63.50 >55% EF BiP: 64.10 >55% Mitral Valve MV Pk E: 0.76 MV PK A: 0.90 MV Decel Time: 198.00 E/A: 0.80 E'Lateral: 6.96 E'Medial: 5.22 E/E' Med: 14.60 E/E' Lat: 11.00 PHT: 58.00 MVA PHT: 3.79 Decel [place]: 3.85 Aortic Valve AoV Pk Guy: 1.42 AoV Mn Guy: 0.89 AoV VTI: 0.29 AoV Pk Grad: 8.00 Aov Mn Grad: 4.00 WESLEY Cont.VTI: 2.28 LVOT LVOT Pk Guy: 0.94 LVOT Mn Guy: 0.59 LVOT VTI: 0.23 LVOT Pk Grad: 4.00 LVOT Mn Grad: 2.00 LVOT Diam: 1.90 LVOT Area: 2.84 Diastolic Function MV Pk E: 0.76 MV Pk A: 0.90 E/A: 0.80 E'Medial: 5.22 E/E' Med: 14.60 E' Laterial: 6.96 E/E' Lat: 11.00 Right Ventricle TAPSE (mm): 16.30 TVS' Guy: 10.20 Tricuspid Valve TR Pk Guy: 2.34 TR Pk Grad: 22.00 RA Press: 3.00 RVSP: 25.00 Great Vessels Aorta Sinus of Valsalva: 2.80 2.0-3.5 cm Ao Asc: 3.40 2.1-3.4 cm Pulmonary Valve PV Pk Guy: 0.96 Peak PV Grad: 4.00 Updated in Other Vendor System with Status of Final Gabino Verdugo MD electronically signed on 07/27/2022 10:39:30 AM with status of Final
== END ==
LOC: HO.CARD 09:10
PROVIDERS: PCP Internal Medicine; Visit Provider Internal Medicine
DX: R55 Syncope and collapse (principal); R07.2 Precordial pain; R00.1 Bradycardia, unspecified
CPT/HCPCS: 93017; 93306; 93356

== ENCOUNTER → 2022-08-23 11:40 | Outpatient (BNVA) | payer MEDICARE, SELFPAY | PROVIDERS: PCP Internal Medicine; Visit Provider Internal Medicine | DX: R00.1 Bradycardia, unspecified (principal) | CPT/HCPCS: 99212 ==

== ENCOUNTER 2023-08-07 11:58 | Outpatient (REF) | payer MEDICARE, SELFPAY ==
[2023-08-07 13:41] LABS: MANUAL DIFF FLAG NO
[2023-08-07 13:44] LABS: Basophils Percent Auto 0.8 % (0-2); Eosinophils Absolute Auto 0.1 X10*3/uL (0.0-0.4); Eosinophils Percent Auto 3.5 % (0-4); Hematocrit 45.7 % (37.0-47.0); Hemoglobin 14.9 g/dl (12.0-16.0); Imm Gran Abs Auto 0.01 X10*3/uL (0.00-0.03); Imm Gran Pct Auto 0.3 % (0.0-0.4); Lymphocytes Absolute Auto 1.4 X10*3/uL (1.2-4.9); Lymphocytes Percent Auto 37.1 % (20-40); Mean Corpuscular HGB Conc 32.6 g/dl (31.0-35.0); Mean Corpuscular Hemoglobin 30.3 pg (27.0-33.0); Mean Corpuscular Volume 93.1 fL (80.0-98.0); Mean Platelet Volume 10.2 fL (9.4-12.3); Monocytes Absolute Auto 0.3 X10*3/uL (0.1-1.2); Monocytes Percent Auto 8.8 % (2-11); Neutrophils Absolute Auto 1.9 x10*3/uL (2.0-8.3); Neutrophils Percent Auto 49.5 % (45-73); Platelet Count 183 X10*3/uL (160-400); Red Blood Count 4.91 X10*6/uL (4.20-5.50); Red Cell Distribution Width 13.2 % (11.0-16.0); White Blood Count 3.8 X10*3/uL (4.8-10.8)
[2023-08-07 14:01] LABS: Alanine Aminotransferase 12 U/L (0-31); Albumin Level 4.3 g/dL (3.5-5.0); Alkaline Phosphatase 84 U/L (39-117); Anion Gap 11 (12-20); Aspartate Amino Transferase 24 U/L (5-31); Bilirubin Total 0.9 mg/dL (0.0-1.0); Blood Urea Nitrogen 15 mg/dL (9-16); Calcium 10.8 mg/dL (8.4-10.2); Carbon Dioxide 27 mmol/L (22-29); Chloride 108 mmol/L (96-108); Cholesterol 164 mg/dL (<200); Estimated Glomerular Filt Rate > 60; Glucose Fasting 86 mg/dL (60-99); HDL Cholesterol 71 mg/dL (>40); LDL Cholesterol Calculated 75 mg/dL (<100); Potassium 4.4 mmol/L (3.3-5.1); Sodium 142 mmol/L (135-145); Total Protein 6.9 g/dL (6.5-8.0); Triglycerides 94 mg/dL (<150)
[2023-08-07 14:17] LABS: Free T4 (Free Thyroxine) 1.05 ng/dL (0.71-1.85); Thyroid Stimulating Hormone 1.79 uIU/mL (0.32-4.0)
== END 2023-08-07 11:59 | disposition home or self-care (01) ==
LOC: HO.10HDL 11:58
PROVIDERS: Visit Provider Internal Medicine
DX: I10 Essential (primary) hypertension (principal); E03.9 Hypothyroidism, unspecified; E78.00 Pure hypercholesterolemia, unspecified; M54.9 Dorsalgia, unspecified
CPT/HCPCS: 36415; 80053; 80061; 82306; 84439; 84443; 85025

== ENCOUNTER 2024-01-15 12:59 | Outpatient (REF) | payer MEDICARE, SELFPAY ==
[2024-01-15 13:10] LABS: MANUAL DIFF FLAG NO
[2024-01-15 13:22] LABS: Basophils Percent Auto 0.5 % (0-2); Eosinophils Absolute Auto 0.1 X10*3/uL (0.0-0.4); Eosinophils Percent Auto 2.6 % (0-4); Hemoglobin 15.4 g/dl (12.0-16.0); Lymphocytes Absolute Auto 1.5 X10*3/uL (1.2-4.9); Mean Corpuscular HGB Conc 33.5 g/dl (31.0-35.0); Mean Corpuscular Hemoglobin 30.6 pg (27.0-33.0); Mean Corpuscular Volume 91.5 fL (80.0-98.0); Mean Platelet Volume 9.5 fL (9.4-12.3); Monocytes Absolute Auto 0.4 X10*3/uL (0.1-1.2); Monocytes Percent Auto 8.8 % (2-11); Neutrophils Absolute Auto 2.3 x10*3/uL (2.0-8.3); Neutrophils Percent Auto 54.1 % (45-73); Platelet Count 161 X10*3/uL (160-400); Red Blood Count 5.03 X10*6/uL (4.20-5.50); Red Cell Distribution Width 12.8 % (11.0-16.0); White Blood Count 4.3 X10*3/uL (4.8-10.8)
[2024-01-15 14:07] LABS: Anion Gap 12 (12-20); Blood Urea Nitrogen 14 mg/dL (9-16); Calcium 10.5 mg/dL (8.4-10.2); Carbon Dioxide 27 mmol/L (22-29); Chloride 107 mmol/L (96-108); Estimated Glomerular Filt Rate 60; Glucose Random 77 mg/dL (60-115); Parathyroid Hormone Intact 101.6 pg/mL (8.7-77.1); Potassium 4.7 mmol/L (3.3-5.1); Sodium 141 mmol/L (135-145)
[2024-01-15 14:23] LABS: Free T4 (Free Thyroxine) 1.09 ng/dL (0.71-1.85); Thyroid Stimulating Hormone 3.93 uIU/mL (0.32-4.0)
== END 2024-01-15 13:00 | disposition home or self-care (01) ==
LOC: HO.LAB 12:59
PROVIDERS: PCP Internal Medicine; Visit Provider Internal Medicine
DX: E03.9 Hypothyroidism, unspecified (principal)
CPT/HCPCS: 36415; 80048; 83970; 84439; 84443; 85025

== ENCOUNTER 2024-06-12 10:11 | Outpatient (REF) | payer MEDICARE, SELFPAY ==
[2024-06-12 11:12] LABS: MANUAL DIFF FLAG NO
[2024-06-12 11:18] LABS: Basophils Percent Auto 0.7 % (0-2); Eosinophils Absolute Auto 0.1 X10*3/uL (0.0-0.4); Eosinophils Percent Auto 3.3 % (0-4); Hematocrit 44.8 % (37.0-47.0); Hemoglobin 14.7 g/dl (12.0-16.0); Lymphocytes Absolute Auto 1.7 X10*3/uL (1.2-4.9); Lymphocytes Percent Auto 39.5 % (20-40); Mean Corpuscular HGB Conc 32.8 g/dl (31.0-35.0); Mean Corpuscular Hemoglobin 30.2 pg (27.0-33.0); Mean Platelet Volume 9.9 fL (9.4-12.3); Monocytes Absolute Auto 0.5 X10*3/uL (0.1-1.2); Monocytes Percent Auto 10.6 % (2-11); Neutrophils Absolute Auto 1.9 x10*3/uL (2.0-8.3); Neutrophils Percent Auto 45.9 % (45-73); Platelet Count 177 X10*3/uL (160-400); Red Blood Count 4.87 X10*6/uL (4.20-5.50); Red Cell Distribution Width 12.8 % (11.0-16.0); White Blood Count 4.2 X10*3/uL (4.8-10.8)
[2024-06-12 11:55] LABS: Parathyroid Hormone Intact 118.6 pg/mL (8.7-77.1)
[2024-06-12 12:00] LABS: Alanine Aminotransferase 14 U/L (0-31); Albumin Level 4.2 g/dL (3.5-5.0); Alkaline Phosphatase 86 U/L (39-117); Anion Gap 11 (12-20); Aspartate Amino Transferase 24 U/L (5-31); Bilirubin Total 1.1 mg/dL (0.0-1.0); Blood Urea Nitrogen 15 mg/dL (9-16); Calcium 10.3 mg/dL (8.4-10.2); Carbon Dioxide 28 mmol/L (22-29); Chloride 108 mmol/L (96-108); Estimated Glomerular Filt Rate 55; Free T4 (Free Thyroxine) 1.25 ng/dL (0.71-1.85); Glucose Random 90 mg/dL (60-115); Sodium 142 mmol/L (135-145); Thyroid Stimulating Hormone 0.81 uIU/mL (0.32-4.0); Total Protein 6.7 g/dL (6.5-8.0)
== END 2024-06-12 10:12 | disposition home or self-care (01) ==
LOC: HO.10HDL 10:11
PROVIDERS: Visit Provider Internal Medicine
DX: I10 Essential (primary) hypertension (principal); E03.9 Hypothyroidism, unspecified; E78.00 Pure hypercholesterolemia, unspecified
CPT/HCPCS: 36415; 80053; 83970; 84439; 84443; 85025

== ENCOUNTER 2024-09-18 09:34 | Outpatient (REF) | payer MEDICARE, SELFPAY ==
[2024-09-18 11:26] LABS: Anion Gap 10 (12-20); Blood Urea Nitrogen 15 mg/dL (9-16); Calcium 9.9 mg/dL (8.4-10.2); Carbon Dioxide 28 mmol/L (22-29); Chloride 107 mmol/L (96-108); Cholesterol 155 mg/dL (<200); Estimated Glomerular Filt Rate 52; Glucose Fasting 85 mg/dL (60-99); HDL Cholesterol 65 mg/dL (>40); LDL Cholesterol Calculated 70 mg/dL (<100); Potassium 4.4 mmol/L (3.3-5.1); Sodium 141 mmol/L (135-145); Triglycerides 103 mg/dL (<150)
[2024-09-18 11:40] LABS: Vitamin D 25-OH Total 43.2 ng/mL (>30)
== END 2024-09-18 09:35 | disposition home or self-care (01) ==
LOC: HO.10HDL 09:34
PROVIDERS: Visit Provider Internal Medicine
DX: I10 Essential (primary) hypertension (principal); E78.00 Pure hypercholesterolemia, unspecified; E83.52 Hypercalcemia
CPT/HCPCS: 36415; 80048; 80061; 82306

== ENCOUNTER 2024-10-29 17:41 | Emergency (ER) | payer MEDICARE, SELFPAY ==
--- NOTE | ~2024-10-29 | CT_ITS ---
CLINICAL HISTORY: r lq pain ?ventral hernia CT abdomen and pelvis without contrast Comparison: CT/SR - PELVIS WITHOUT CONTRAST [id number] - 06/20/17 17:04 EDT Findings: No consolidation or effusion. Cholelithiasis. Abdominal solid organs unremarkable. No urolithiasis. No bowel obstruction, pneumoperitoneum, or pneumatosis. Moderate stool. Appendix not identified. 1.5 cm right ovarian cyst, previously 2.1 cm. Uterus and ovaries otherwise unremarkable. No ascites. Left subcapital femoral neck fracture is old with screw fixation. No hardware complications. IMPRESSION: 1. No ventral hernia. 2. Cholelithiasis without acute cholecystitis. 3. Small right ovarian cyst. Recommend yearly ultrasound follow-up. This document has been electronically signed by: Juanito López MD on 10/30/2024 01:11:33
[2024-10-29 18:33] VITALS: BP 135/78; PULSE 67; RESP 18; TEMP 36.7; O2SAT 99; BMI 25.3
--- NOTE | 2024-10-29 18:33 | ED.ABDPAIN ---
HPI - Abdominal Pain General Chief Complaint: Abdominal Pain Stated Complaint: pcp sent in belly button sore? Time Seen by Provider: 10/29/24 23:25 Source: patient Mode of arrival: ambulatory Limitations: no limitations History of Present Illness ED Provider: HPI narrative: Apparently patient fell backwards what 10 days ago while opening a door next day she noticed pain in the right lower abdomen especially when she gets up patient is status post appendectomy no history of hernia no nausea no vomiting no fever no chills no urinary symptoms Related Data Home Medications ?Medication ?Instructions ?Recorded ?Confirmed Vitamin D3 11/26/21 08/23/22 calcium 11/26/21 08/23/22 levothyroxine 75 mcg tablet 75 mcg PO DAILY 06/20/22 08/23/22 losartan 25 mg tablet 25 mg PO DAILY 06/20/22 08/23/22 simvastatin 20 mg tablet 20 mg PO DAILY 06/20/22 08/23/22 Previous Rx's ?Medication ?Instructions ?Recorded acetaminophen 500 mg tablet 1,000 mg (2 x 500 mg) PO QID PRN 07/10/22 pain #30 tabs naproxen 500 mg tablet (Naprosyn) 500 mg PO BID PRN pain #14 tabs 07/10/22 Allergies Allergy/AdvReac Type Severity Reaction Status Date / Time No Known Allergies Allergy Verified 10/29/24 18:35 [No Known Allergies*] Review of Systems Review of Systems Yes all other systems are reviewed and are negative [facility] Past Medical History Medical History Hypothyroidism Cataract High cholesterol High blood pressure Surgical History Hx of colonoscopy History of hip surgery Hx of appendectomy Family History Family History Father Heart attack Mother No problems noted. Social History Social History Are you a primary patient care coordinator to a significant other at home: No Do you presently have visiting nurse or other home services: No Patient Tobacco Use Status: Never used Tobacco Advance Directives: No Advance Directives Information Provided: Yes Current occupational status: retired Current occupation: rt handed Physical Exam ED Vital Signs: Vital Signs - 24 hr 10/29/24 18:33 Temperature 98.0 F Pulse Rate 67 Respiratory Rate 18 Blood Pressure 135/78 Pulse Oximetry 99 Oxygen Delivery Method Room Air BMI result Body Mass Index 25.3 Appearance: Alert. Oriented X3. No acute distress. Eyes: No pallor or icterus ENT: Pharynx normal. Oral Mucosa moist Neck: Normal inspection. Neck supple. CVS: Normal heart rate and rhythm. Pulses normal. Respiratory: No respiratory distress. Equal air entry bilateral, no wheezing/rales/rhonchi Abdomen: Soft and nontender. Bowel sounds are present, small 2x2 cm soft tissue mass palpable when patient tries to get up, no CVA tenderness Skin: Skin warm and dry. Normal skin color. Normal skin turgor. Extremities: No lower extremity edema. No calf tenderness Neuro: Oriented X 3. No motor deficit. Course Course Course Narrative: This is a Rapid Medical Examination (RME) performed by Hebert Lizama PA-C in triage. Full HPI, ROS, assessment and treatment plan per primary provider in the Main ED. 79 yo female presents to the ER for evaluation of a fall, landing on her back and hitting her head 1.5 weeks ago. she reports RLQ pain the day after she fell with difficulty urinating. pain is when she cough and goes to get up out of bed. on examination she has a nontender abdomen, no palpable masses w/ valsalva. sent in for evaluation by her PCP. Plan: labs and UA, imaging per primary provider Medical Decision Making Medical Decision Making [facility] Narrative: Patient clinically abdominal muscle strain/small hernia CT scan negative for hernia showed gallstones without cholecystitis and small ovarian cyst patient is otherwise without any significant pain at rest will discharge patient home advised not to strain all lift anything heavy Differential Diagnosis Differential Diagnoses: The differential diagnosis associated with the presentation includes Ventral hernia/diverticulitis/gallstones/kidney stone Lab Data [facility] Lab Attestation statement: I reviewed the patient's lab results. 10/29/24 18:51 10/29/24 18:51 Labs: Lab Results 10/29/24 Range/Units 18:51 WBC 5.0 (4.8-10.8) X10*3/uL RBC 4.85 (4.20-5.50) X10*6/uL Hgb 14.8 (12.0-16.0) g/dl Hct 44.1 (37.0-47.0) % MCV 90.9 (80.0-98.0) fL MCH 30.5 (27.0-33.0) pg MCHC 33.6 (31.0-35.0) g/dl RDW 12.8 (11.0-16.0) % Plt Count 177 (160-400) X10*3/uL MPV 9.1 L (9.4-12.3) fL Immature Gran % (Auto) 0.2 (0.0-0.4) % Neut % (Auto) 55.6 (45-73) % Lymph % (Auto) 30.9 (20-40) % [place] % (Auto) 9.9 (2-11) % Eos % (Auto) 3.0 (0-4) % Baso % (Auto) 0.4 (0-2) % Lymph # (Auto) 1.5 (1.2-4.9) X10*3/uL [place] # (Auto) 0.5 (0.1-1.2) X10*3/uL Eos # (Auto) 0.2 (0.0-0.4) X10*3/uL Baso # (Auto) 0.0 (0.0-0.2) X10*3/uL Abs Immat Gran (auto) 0.01 (0.00-0.03) X10*3/uL Absolute Neuts (auto) 2.8 (2.0-8.3) x10*3/uL Absolute Nucleated RBC 0.000 (0.0-0.012) X10*3/uL Nucleated RBC % (auto) 0.0 (0.0-0.2) /100WBC Sodium 143 (135-145) mmol/L Potassium 4.7 (3.3-5.1) mmol/L Chloride 109 H (96-108) mmol/L Carbon Dioxide 28 (22-29) mmol/L Anion Gap 11 L (12-20) BUN 18 H (9-16) mg/dL Creatinine 0.82 (0.5-1.4) mg/dL Estim Creat Clear Calc 42.7 Estimated GFR > 60 Random Glucose 111 (60-115) mg/dL Calcium 9.8 (8.4-10.2) mg/dL Magnesium 2.1 (1.6-2.6) mg/dL Total Bilirubin 0.7 (0.0-1.0) mg/dL Direct Bilirubin 0.2 (0.0-0.5) mg/dL AST 32 H (5-31) U/L ALT 19 (0-31) U/L Alkaline Phosphatase 96 (39-117) U/L Total Protein 7.0 (6.5-8.0) g/dL Albumin 4.2 (3.5-5.0) g/dL Urine Color Yellow Urine Appearance Clear Urine pH 5.5 (5.0-9.0) Ur Specific [place] <= 1.005 (1.005-1.025) Urine Protein Negative (Neg-Trace) mg/dL Urine Glucose (UA) Negative (Negative) mg/dL Urine Ketones Negative (Negative) mg/dL Urine Blood Negative (Negative) Urine Nitrite Negative (Negative) Ur Leukocyte Esterase Moderate (2+) H (Negative) Urine RBC 0-2 (0-2) /HPF Urine WBC 0-5 (0-5) /HPF Ur Squamous Epith Cells 0-2 (0-2) /HPF Urine Bacteria None Seen (None Seen) Hyaline Casts 0-2 (0-2) /LPF Discharge Plan Discharge Clinical Impression: Abdominal wall pain in right lower quadrant, Cholelithiasis, Other ovarian cyst, right side Patient Disposition: Home, Self-Care Instructions: Ovarian Cyst (ED), Gallstones (ED), Muscle Strain (ED) Additional Instructions: Likely have muscle strain off your abdominal wall muscles as the cause of the pain No clear-cut hernia was seen Do not lift anything heavy till you feel better You also have asymptomatic gallstones and small ovarian cysts Follow with your PCP as needed Prescriptions: No Action Vitamin D3 calcium acetaminophen 500 mg tablet 1,000 mg PO QID PRN (Reason: pain) Qty: 30 0RF naproxen [Naprosyn] 500 mg tablet 500 mg PO BID PRN (Reason: pain) Qty: 14 0RF simvastatin 20 mg tablet 20 mg PO DAILY levothyroxine 75 mcg tablet 75 mcg PO DAILY losartan 25 mg tablet 25 mg PO DAILY Print Language: Somali
[2024-10-29 18:56] LABS: MANUAL DIFF FLAG NO
[2024-10-29 18:57] LABS: Basophils Percent Auto 0.4 % (0-2); Eosinophils Absolute Auto 0.2 X10*3/uL (0.0-0.4); Hematocrit 44.1 % (37.0-47.0); Hemoglobin 14.8 g/dl (12.0-16.0); Imm Gran Abs Auto 0.01 X10*3/uL (0.00-0.03); Imm Gran Pct Auto 0.2 % (0.0-0.4); Lymphocytes Absolute Auto 1.5 X10*3/uL (1.2-4.9); Lymphocytes Percent Auto 30.9 % (20-40); Mean Corpuscular HGB Conc 33.6 g/dl (31.0-35.0); Mean Corpuscular Hemoglobin 30.5 pg (27.0-33.0); Mean Corpuscular Volume 90.9 fL (80.0-98.0); Mean Platelet Volume 9.1 fL (9.4-12.3); Monocytes Absolute Auto 0.5 X10*3/uL (0.1-1.2); Monocytes Percent Auto 9.9 % (2-11); Neutrophils Absolute Auto 2.8 x10*3/uL (2.0-8.3); Neutrophils Percent Auto 55.6 % (45-73); Platelet Count 177 X10*3/uL (160-400); Red Blood Count 4.85 X10*6/uL (4.20-5.50); Red Cell Distribution Width 12.8 % (11.0-16.0)
[2024-10-29 18:58] LABS: Appearance Urine Clear; Color Urine Yellow; Glucose Urine UA Negative (Negative); Leukocyte Esterase Urine Moderate (2+) (Negative); Nitrite Urine Negative (Negative); PH 5.5 (5.0-9.0); Specific Gravity - Urine <= 1.005 (1.005-1.025); UMIC TRIGGER UACC YES; Urine Blood Negative (Negative); Urine Ketones Negative (Negative); Urine Protein Negative (Neg-Trace)
[2024-10-29 19:11] LABS: Alanine Aminotransferase 19 U/L (0-31); Albumin Level 4.2 g/dL (3.5-5.0); Alkaline Phosphatase 96 U/L (39-117); Anion Gap 11 (12-20); Aspartate Amino Transferase 32 U/L (5-31); Bilirubin Direct 0.2 mg/dL (0.0-0.5); Bilirubin Total 0.7 mg/dL (0.0-1.0); Blood Urea Nitrogen 18 mg/dL (9-16); Calcium 9.8 mg/dL (8.4-10.2); Carbon Dioxide 28 mmol/L (22-29); Chloride 109 mmol/L (96-108); Creatinine Clr Calc Pharmacy 42.7; Estimated Glomerular Filt Rate > 60; Glucose Random 111 mg/dL (60-115); Magnesium 2.1 mg/dL (1.6-2.6); Potassium 4.7 mmol/L (3.3-5.1); Sodium 143 mmol/L (135-145)
[2024-10-29 19:30] LABS: Bacteria Urine None Seen (None Seen); Hyaline Casts Urine 0-2 /LPF (0-2); RBC Urine 0-2 /HPF (0-2); Squamous Epithelial Cell Urine 0-2 /HPF (0-2); UACC Culture Trigger YES; WBC Urine 0-5 /HPF (0-5)
[2024-10-30 01:46] VITALS: BP 151/72; PULSE 69; RESP 16; TEMP 36.5; O2SAT 98
--- NOTE | 2024-10-30 01:54 | PC.NURSE ---
pt a&o, sob or chest pain, pt ambulated with a steady gait, no sign of abdomen guarding, reviewed discharge instructions with pt. pt verbalized understanding upon discharge no sign of distress
[2024-10-30 01:55] VITALS: BP 151/72; PULSE 69; RESP 16; TEMP 36.5; O2SAT 98
== END 2024-10-30 01:56 | disposition home or self-care (01) ==
PROVIDERS: Physician Assistant; Emergency Provider Internal Medicine; PCP Internal Medicine
DX: N83.201 Unspecified ovarian cyst, right side (principal); R10.31 Right lower quadrant pain; R10.2 Pelvic and perineal pain; K80.20 Calculus of gallbladder without cholecystitis without obstruction; Z79.899 Other long term (current) drug therapy
CPT/HCPCS: 36415; 74176; 80048; 80076; 81001; 83735; 85025; 87086; 99284

== ENCOUNTER → 2024-10-30 | Outpatient (BNV) | payer MEDICARE, SELFPAY | PROVIDERS: Emergency Provider Internal Medicine; PCP Internal Medicine; Visit Provider Radiology Diagnostic Radiology | DX: R10.31 Right lower quadrant pain (principal) | CPT/HCPCS: 74176 ==

== ENCOUNTER 2025-01-20 12:59 | Outpatient (AMB) | payer MEDICARE, SELFPAY ==
[2025-01-20 13:11] VITALS: BP 124/80; PULSE 65; TEMP 36.3; O2SAT 98; BMI 25.2
--- NOTE | 2025-01-20 13:11 | MHC.PC.OV ---
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 Accompanied by: Self / Same As Patient Allergies No Known Allergies [No Known Allergies*] Allergy (Verified 01/20/25 13:11) Tobacco use date assessed: 01/20/25 Fall risk assessment: 1 Fall in past year Last assessed Fall Risk: 01/20/25 Dental Screening Dental Screen Date: 01/20/25 Did you have a dental visit in the last 12 months?: No Did you have a dental problem in the last 6 months where you did not have access to dental care?: No [facility] Medical History (Updated 01/20/25 @ 13:35 by Fady Bazan MD) Essential hypertension Hyperlipidemia Hyperparathyroidism Hypothyroidism Cataract High cholesterol High blood pressure Surgical History Hx of colonoscopy History of hip surgery Hx of appendectomy Family History Father Heart attack Mother No problems noted. Social History Housing: House Are you a primary direct care staffer to a significant other at home: No Do you presently have visiting nurse or other home services: No Patient Tobacco Use Status: Never used Tobacco e-Cigarette/Vaping Use: Never Used service: No Current occupational status: retired Current occupation: rt handed Cognitive needs: No Hearing needs: No Vision needs: Yes (reading glasses) Questionnaire PHQ-9 Over the last 2 weeks, how often have you been bothered by any of the following problems? 1. Little interest or pleasure in doing things: not at all 2. Feeling down, depressed, or hopeless: not at all 3. Trouble falling or staying asleep, or sleeping too much: not at all 4. Feeling tired or having little energy: not at all 5. Poor appetite or overeating: not at all 6. Feeling bad about yourself - or that you are a failure or have let yourself or your family down: not at all 7. Trouble concentrating on things, such as reading the newspaper or watching television: not at all 8. Moving or speaking so slowly that other people could have noticed. Or the opposite - being so fidgety or restless that you have been moving around a lot more than usual: not at all 9. Thoughts that you would be better off or of hurting yourself in some way: not at all Total score: 0 Source: Developed by Drs. Jesus Miranda, Galilea Beltran, Neftali East and colleagues, with an educational isaac from [employer]. Thrive Questionnaire Date Thrive assessed: 01/20/25 I am a: Patient Within the past 12 months, did the food you bought not last and you didn't have the money to get more?: Never true Within the past 12 months, did you worry whether your food would run out before you got money to buy more?: Never true Do you have trouble paying for medicines?: No Do you have trouble getting transportation to medical appointments?: No Do you have trouble paying your heating and electricity bill?: No Do you have trouble taking care of your child, family member or friend?: No Do you have trouble with day-to-day activities such as bathing, preparing meals, shopping, managing finances, etc.?: No Are you currently unemployed and looking for a job?: No Are you interested in more education?: No THRIVE Score: 0 AUDIT C Alcohol Use Questionnaire (AUDIT-C) 1. How often do you have a drink containing alcohol?: Never 3. How often do you have six or more drinks on one occasion?: Never Total Score: 0 ROXANA-7 AMB Questionnaire ROXANA-7 Date ROXANA - 7 assessed: 01/20/25 Feeling nervous, anxious, or on edge: 0 = Not at all Not being able to stop or control worryin = Not at all Worrying too much about different things: 0 = Not at all Trouble relaxin = Not at all Being so restless that it is hard to sit still: 0 = Not at all Becoming easily annoyed or irritable: 0 = Not at all Feeling afraid as if something awful might happen: 0 = Not at all Total ROXANA-7 score (0-4 normal; 5-9 mild; 10-14 moderate; 15-21 severe): 0 Source: Developed by Drs. Jesus Miranda, Galilea Beltran, Neftali East and colleagues, with an educational isaac from [employer]. Physical exam (Primary Care) Vital Signs: Last Vital Signs Temp 97.3 F 01/20/25 13:11 Pulse 65 01/20/25 13:11 BP 124/80 01/20/25 13:11 Pulse Ox 98 01/20/25 13:11 Oxygen Delivery Method Room Air 01/20/25 13:11 BMI result Body Mass Index 25.2 Tobacco/Smoking Status: Tobacco use Status Tobacco use date assessed 01/20/25 01/20/25 13:14 Patient Tobacco Use Status Never used Tobacco 01/20/25 13:14 e-Cigarette/Vaping Use Never Used 01/20/25 13:25 PHQ-9: PHQ-9 Score PHQ-9: Total score 0 01/20/25 13:14 Thrive Assessment: Date of Thrive Assessment Date Thrive assessed 01/20/25 01/20/25 13:14 Coding Level of Care Code New Pt Level 4 (33422) Complex EM visit Add On G2211 Diagnoses Hyperparathyroidism E21.3 Hyperlipidemia E78.5 Essential hypertension I10 Assessment & Plan Assessment & Plan (1) Hyperparathyroidism: Code(s): E21.3 - Hyperparathyroidism, unspecified Category: Medical Plan: Elevated PTH noted on routine bw. Endocrinology appt requested (2) Hyperlipidemia: Code(s): E78.5 - Hyperlipidemia, unspecified Category: Medical Plan: BW is in range, continue the statins. (3) Essential hypertension: Code(s): I10 - Essential (primary) hypertension Category: Medical Plan: BP is in range. Continue current meds Plan History of Present Illness The patient is a 79-year-old female presenting for the review and management of chronic health conditions, medication refills, and evaluation of parathyroid hormone levels. She has experienced recurrent vertigo, which was first noted after a fall approximately one month ago. This fall initially caused dizziness and subsequent transient pain while moving from lying to sitting, which has since resolved. Past medical assessments indicated notable findings including a strained muscle and a hernia, alongside gallstones identified via ultrasound. The patient has a background of hypothyroidism and recently identified hyperparathyroidism, with elevated parathyroid hormone levels. She has not pursued further endocrine evaluation yet and reports difficulties in swallowing calcium supplements. Additionally, she maintains an active lifestyle, managing independent tasks effectively, despite the recent loss of her spouse. Social History - The patient is , having lost her in March after 59 years of marriage. 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 - Resides independently and is able to manage daily activities such as driving. - Reports delivery of medications via [facility], highlighting engagement in independent health management. Review of Systems - Neurologic: Reports episodic vertigo; Denies current dizziness. - Musculoskeletal: Reports pain transitioning from lying to sitting position, now resolved. - Endocrine: Denies current issues beyond known thyroid and parathyroid conditions. - Gastrointestinal: Reports gallstones, denies additional gastrointestinal symptoms. Physical Exam General: Cooperative and healthy appearing Nutritional Appearance: Well nourished Orientation/consciousness: Patient oriented x3 Limitations: No limitations Head: Normal to inspection General: Appearance normal, both eyes and all related structures Neck: Normal visual inspection Chest: Normal palpation of entire chest wall Respiratory: N ormal respiratory effort Neurology: Patient oriented x3, reports episodes of vertigo but currently no dizziness. Results - Tests: Ultrasound revealed strained muscle, hernia, and gallstones. Plan The patient's recent vertigo and musculoskeletal pain from a fall have resolved. Current management of gallstones is conservative, with no acute intervention required. Thyroid medication will continue, while an senior mortgage underwriter referral is arranged for further assessment of elevated parathyroid hormone. Calcium supplementation methods will be addressed. Renewed prescriptions support continued thyroid treatment adherence. Future follow-up will reassess thyroid function and monitor endocrinology consult outcomes. The patient will manage vertigo with prior strategies, and return if symptoms worsen. Post-loss social functioning remains stable. Patient was informed and verbally consented to the use of an ambient scribe for clinic note documentation during this visit. Discussion Notes During the consultation, I discussed with the patient the resolution of her episodic vertigo and musculoskeletal pain. Management for her cholelithiasis remains non-interventional unless symptomatic distress necessitates surgical review. Emphasis was placed on scheduling an senior mortgage underwriter consultation to explore the elevated parathyroid hormone levels. The risks and benefits of addressing hyperparathyroidism were relayed, highlighting potential calcium supplementation alternatives given her swallowing difficulties. Additionally, I renewed her thyroid medication prescriptions, confirming system efficiency with [facility] delivery. We also reviewed her daily functional status and the impact of recent lifestyle changes following her 's passing, affirming her continued independence. A follow-up in six months is scheduled, with instructions to report any exacerbations in vertigo or musculoskeletal discomfort sooner if needed. Patient Instructions - Continue taking thyroid medication as prescribed. - Follow up with the senior mortgage underwriter for evaluation of parathyroid hormone levels. - Renew medications through your pharmacy as needed. - Manage vertigo with previously recommended strategies and seek care if it worsens. - Maintain an active lifestyle and drive as able. - Contact the clinic if new symptoms develop or current symptoms worsen.
--- OUTSIDE RECORDS SUMMARY | 2025-01-20 15:06 | XMS_ITS ---
Author Organization [facility] Care Team Providers Care Assurance Assistant Name Role Phone Cayetano Morris Unavailable Unavailable Allergies and adverse reactions No Known Allergies Care Team Name Role Address Phone Organization Dates Cayetano Morris PCP [address], [address], [place], [address], [place] (Office): : [facility] 06/23/2017 - 06/29/2017 Immunizations Immunization Status Vaccine Details Vaccine Code CodeSystem Gallo e Notes TB 1 Step Mantoux (PPD) completed tuberculin skin test; unspecified formulation 98 CVX created date: 06/26/2017 consent date: 06/26/2017 administered date: 06/23/2017 Mental Status Section Date Assessment Total Score Description 06/29/2017 BIMS 15 cognitively int act CAM 0 No delirium ind icated PHQ-9 04 minimal depress ion Problems Problem # Description Date of onset Resolved Date Code CodeSystem Concern Status 1 ATYPICAL FEMORAL FRACTURE, UNSPECIFIED, INITIAL ENCOUNTER FOR FRACTURE 06/23/[address] active 2 ESSENTIAL (PRIMARY) HYPERTENSION 06/23/[address] active 3 HYPOTHYROIDISM, UNSPECIFIED 06/23/[address] active Reason for Referral No Reasons for Referral Entered Social History Social History Observation Description Start Date End Date Code Code System Current Smoking Status Tobacco smoking consumption unknown 111309804 SNOMED CT Sex Assigned At Female 1945 64625-5 [facility] Vital Signs Code Code System Vitals Name Values and Units Timing Information 29367-3 [facility] Pain Level Value=0.0 06/29/2017 9279-1 [facility] Respiratory Rate Value=18.0 Units=/m in 06/26/2017 8462-4 [facility] Blood Pressure-Diastolic Value=82 Un its=mmHg 06/26/2017 8480-6 [facility] Blood Pressure-Systolic Encks=781 Un its=mmHg 06/26/2017 8310-5 [facility] Body Temperature Value=98.9 Units=?? F 06/26/2017 8867-4 [facility] Heart rate Value=54.0 Units=/min 30617-4 [facility] O2 % dC Oximetry Value=95.0 Units= % 06/26/2017 37006-6 [facility] Weight Bfgyn=194.0 Units=Lbs 8302-2 [facility] Height Value=60.0 Units=Inches 06/24/2017
== END 2025-01-20 13:36 | disposition home or self-care (01) ==
LOC: HO.HMCHD 13:10
PROVIDERS: PCP Internal Medicine; Visit Provider Internal Medicine
DX: E21.3 Hyperparathyroidism, unspecified (principal); E78.5 Hyperlipidemia, unspecified; I10 Essential (primary) hypertension

== ENCOUNTER → 2025-01-20 12:59 | Outpatient (BNVA) | payer MEDICARE, SELFPAY | PROVIDERS: PCP Internal Medicine; Visit Provider Internal Medicine | DX: E21.3 Hyperparathyroidism, unspecified (principal); E78.5 Hyperlipidemia, unspecified; I10 Essential (primary) hypertension | CPT/HCPCS: 99202 ==

== ENCOUNTER 2025-03-18 12:56 | Outpatient (AMB) | payer MEDICARE, SELFPAY ==
[2025-03-18 12:58] VITALS: BP 130/70; PULSE 60; O2SAT 94; BMI 25.8
--- NOTE | 2025-03-18 12:58 | MHC.OFFVIS ---
Vital Signs 03/18/25 12:58 Height 4 ft 11 in Weight 127 lb 10.362 oz BMI 25.8 BP 130/70 Blood Pressure Location Lt brachial Position Sitting Pulse 60 Pulse Source Pulse Oximeter Pulse Oximetry (%) 94 Oxygen Delivery Method Room Air Intake Visit Reasons: Hyperparathyroidism, unspecified Intake Note: New patient present today for Hyperparathyroidism, unspecified. Composing Room Machinist Required: No Accompanied by: Self / Same As Patient Allergies No Known Allergies [No Known Allergies*] Allergy (Verified 03/18/25 13:03) Medication List - Last Reconciled 03/18/25 by Merry Sanchez MD cholecalciferol (vitamin D3) 25 mcg PO DAILY levothyroxine 75 mcg PO DAILY losartan 25 mg PO DAILY simvastatin 20 mg PO DAILY HPI Comments Details: 79-year-old female coming in today for initial evaluation of PTH mediated hypercalcemia. Chart review shows that patient has had borderline high calcium levels since 2018 with calcium levels ranging anywhere from 9.5 to 10.8, however her albumin level has ranged anywhere from 4.1-4.4, corrected calcium would be somewhere around 9.6 to 10.5. Most recent labs from October 2024 showed calcium of 9.8, albumin of 4.2, corrected calcium would be 9.6, magnesium normal at 2.1, normal kidney function, vitamin-D from September 2024 was 43 point with a calcium of 9.9, back in June 2024 she was found to have PTH high at 118 point 6 when calcium was 10.3 with albumin of 4.2, corrected calcium would be 10.1. No kidney stones Fracture history : 2017 left hip fracture, fell from standing height. neck fracture falling from slide when she was 5. DEXA May 2018 : L1-L4 -1.2 spine osteopenia decrease of -1.4 percent compared to 2014, right femur neck -2.3 , right total -1.5 , decrease of 10.7% , Frax score 22.2 % major osteo and 5.7 % hip Family history : no calcium problems , or kidney stones No parent fractured hip Vitamin D: 1000 units daily Calcium :no supplements Milk : none, yogurt: none, cheese: barely Green leafy vegetables: not much No muscle aches or pains, no abd pain , does have memory issues , no brain fog Osteoporosis risk factures Never smoker No alcohol No steroids No long periods of immobilization No PPI No RA No seizure medications, no heparin use No chronic inflammatory lung or bowel disease Dentist: years ago, denies any pain in teeth 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 Managed by PCP. Physical exam General: sitting comfortably in no acute distress HEENT: normocephalic/atraumatic Neck: supple, symmetrical Cardiac: normal heart sounds Pulm: normal breath sounds B/L, no added breath sounds Abd: not distended, no tenderness Extremities: no edema, no signs of myxedema Laboratory Tests 12/18/18 06/17/19 12/03/19 12:40 11:25 11:38 Creatinine Estimated GFR Calcium 10.4 H 9.9 10.0 Magnesium Albumin 4.4 4.3 4.2 25-OH Vitamin D Total TSH Free T4 PTH Intact 08/11/20 02/11/21 11/17/21 11:25 10:25 10:20 Creatinine Estimated GFR Calcium 9.5 10.1 D 10.2 Magnesium Albumin 4.2 4.3 4.1 25-OH Vitamin D Total TSH Free T4 PTH Intact 07/22/22 08/07/23 01/15/24 09:05 12:05 13:08 Creatinine Estimated GFR Calcium 9.6 10.8 H D 10.5 H Magnesium Albumin 4.1 4.3 25-OH Vitamin D Total 63.0 TSH Free T4 PTH Intact 101.6 H 06/12/24 09/18/24 10/29/24 10:18 09:40 18:51 Creatinine 0.82 Estimated GFR > 60 Calcium 10.3 H 9.9 9.8 Magnesium 2.1 Albumin 4.2 4.2 25-OH Vitamin D Total 43.2 TSH 0.81 Free T4 1.[address] abdomen and pelvis without contrast October 2024 Comparison: CT/SR - PELVIS WITHOUT CONTRAST [id number] - 06/20/17 17:04 EDT Findings: No consolidation or effusion. Cholelithiasis. Abdominal solid organs unremarkable. No urolithiasis. No bowel obstruction, pneumoperitoneum, or pneumatosis. Moderate stool. Appendix not identified. 1.5 cm right ovarian cyst, previously 2.1 cm. Uterus and ovaries otherwise unremarkable. No ascites. Left subcapital femoral neck fracture is old with screw fixation. No hardware complications. IMPRESSION: 1. No ventral hernia. 2. Cholelithiasis without acute cholecystitis. 3. Small right ovarian cyst. Recommend yearly ultrasound follow-up. This document has been electronically signed by: Juanito López MD on 10/30/2024 01:11:33 [facility] Medical History (Updated 03/18/25 @ 13:55 by Merry Sanchez MD) Osteoporosis Essential hypertension Hyperlipidemia Hyperparathyroidism Hypothyroidism Cataract High cholesterol High blood pressure Surgical History Hx of colonoscopy History of hip surgery Hx of appendectomy Family History Father Heart attack Mother No problems noted. Social History Housing: House Are you a primary career resource specialist to a significant other at home: No Do you presently have visiting nurse or other home services: No Patient Tobacco Use Status: Never used Tobacco e-Cigarette/Vaping Use: Never Used service: No Current occupational status: retired Current occupation: rt handed Cognitive needs: No Hearing needs: No Vision needs: Yes (reading glasses) Assessment & Plan Assessment & Plan (1) Hyperparathyroidism: Code(s): E21.3 - Hyperparathyroidism, unspecified Category: Medical Plan: 79-year-old female coming in today for initial evaluation of PTH mediated hypercalcemia and osteoporosis. Chart review shows that patient has had borderline high calcium levels since 2019 with calcium levels ranging anywhere from 9.5 to 10.8, however her albumin level has ranged anywhere from 4.1-4.4, corrected calcium would be somewhere around 9.6 to 10.5. Most recent labs from October 2024 showed calcium of 9.8, albumin of 4.2, corrected calcium would be 9.6, magnesium normal at 2.1, normal kidney function, vitamin-D from September 2024 was 43 point with a calcium of 9.9, back in June 2024 she was found to have PTH high at 118 point 6 when calcium was 10.3 with albumin of 4.2, corrected calcium would be 10.1. Given normal kidney function and normal vitamin-D levels this is not secondary hyperparathyroidism. Most likely differentials are primary hyperparathyroidism or familial hypercalcemic hypercalciuria. Unlikely FHH given age of presentation. But we will do a 24 hour urine calcium evaluation. If she does have underlying primary hyperparathyroidism she does have history of osteoporosis given fragility fracture in 2017 after fall from standing height. Her last bone density scan from May 2018 showed osteopenia of the spine with T-score of-1.2, though she has some arthritis in her back that could be falsely elevating her bone density in the spine, right femoral neck T-score-2.3 and right total femur-1.5 consistent with osteopenia however FRAX at the hip was elevated at 5.7% warranting treatment for osteoporosis. Given osteoporosis if she has underlying hyperparathyroidism she would meet surgical indication. We will also check 24 hour urine evaluation, otherwise kidney functions fine, no history of kidney stones but we will check a renal ultrasound. Her serum calcium levels are only borderline elevated. She is greater than age 50. She has very poor nutritional intake of calcium, at this time I have asked her to increase her nutritional intake of calcium for both testing as well as good bone health. , she should not be on any calcium supplements but she should be taking normal amounts of nutritional intake of calcium with 2-3 servings of calcium daily to account for 1000 mg of calcium in diet daily. She should continue on vitamin D 1000 units daily for good bone health. After 8 weeks of increased nutritional intake of calcium we will do the 24 hour urine calcium evaluation so that it does not falsely low in the setting of poor nutritional intake. If given her age she decides she does not want surgery, she would still want in treatment for osteoporosis. Her risk factors for osteoporosis are age, being postmenopausal, likely underlying primary hyperparathyroidism, poor nutritional intake of calcium. She is not up-to-date with dental care. We will also check bone resorption markers as well as complete secondary workup for osteoporosis in case we go this route. Plan: -increase calcium intake in diet to 2-3 servings of calcium rich foods daily to account for 1000 mg of calcium daily, no calcium supplements -take 1000 units of vitamin-D daily -after 8 weeks of the above, ordered 24 hour urine calcium, creatinine, and blood work to be done the same day as she hence in the urine, with repeat calcium, albumin, ionized calcium, PTH, vitamin-D, phosphorus, creatinine -ordered secondary workup for osteoporosis -ordered bone density scan including the forearm -ordered renal ultrasound -follow up in 11 weeks to discuss results (2) Osteoporosis: Code(s): M81.0 - Age-related osteoporosis without current pathological fracture Category: Medical Qualifiers: Osteoporosis type: age-related Presence of current pathological fracture: without current pathological fracture Qualified Code(s): M81.0 - Age-related osteoporosis without current pathological fracture Plan: If she does have underlying primary hyperparathyroidism she does have history of osteoporosis given fragility fracture in 2017 after fall from standing height. Her last bone density scan from May 2018 showed osteopenia of the spine with T-score of-1.2, though she has some arthritis in her back that could be falsely elevating her bone density in the spine, right femoral neck T-score-2.3 and right total femur-1.5 consistent with osteopenia however FRAX at the hip was elevated at 5.7% warranting treatment for osteoporosis. Given osteoporosis if she has underlying hyperparathyroidism she would meet surgical indication. We will also check 24 hour urine evaluation, otherwise kidney functions fine, no history of kidney stones but we will check a renal ultrasound. Her serum calcium levels are only borderline elevated. She is greater than age 50. If given her age she decides she does not want surgery, she would still want in treatment for osteoporosis. Her risk factors for osteoporosis are age, being postmenopausal, likely underlying primary hyperparathyroidism, poor nutritional intake of calcium. She is not up-to-date with dental care. We will also check bone resorption markers as well as complete secondary workup for osteoporosis in case we go this route. Plan: -increase calcium intake in diet to 2-3 servings of calcium rich foods daily to account for 1000 mg of calcium daily, no calcium supplements -take 1000 units of vitamin-D daily -ordered secondary workup for osteoporosis -ordered bone density scan including the forearm Plan I spent 60 minutes in reviewing the record, seeing the patient and documenting in the medical record. Orders: Orders Calcium Today E21.3 - Hyperparathyroidism, unspecified, M81.0 - Age-related osteoporosis without current pathological fracture Phosphorus Today E21.3 - Hyperparathyroidism, unspecified, M81.0 - Age-related osteoporosis without current pathological fracture Creatinine Today E21.3 - Hyperparathyroidism, unspecified, M81.0 - Age-related osteoporosis without current pathological fracture Calcium, 24 Hr Ur Today E21.3 - Hyperparathyroidism, unspecified, M81.0 - Age-related osteoporosis without current pathological fracture Protein Electrophoresis, Serum Today E21.3 - Hyperparathyroidism, unspecified, M81.0 - Age-related osteoporosis without current pathological fracture Immunofixation Pnl, Serum Today E21.3 - Hyperparathyroidism, unspecified, M81.0 - Age-related osteoporosis without current pathological fracture Alkaline Phosphatase Bone Today E21.3 - Hyperparathyroidism, unspecified, M81.0 - Age-related osteoporosis without current pathological fracture US renal BI Today E21.3 - Hyperparathyroidism, unspecified, M81.0 - Age-related osteoporosis without current pathological fracture Albumin Level Today E21.3 - Hyperparathyroidism, unspecified, M81.0 - Age-related osteoporosis without current pathological fracture Calcium, Ionized Today E21.3 - Hyperparathyroidism, unspecified, M81.0 - Age-related osteoporosis without current pathological fracture Parathyroid Hormone Intact Today E21.3 - Hyperparathyroidism, unspecified, M81.0 - Age-related osteoporosis without current pathological fracture Vitamin D 25-OH Total Today E21.3 - Hyperparathyroidism, unspecified, M81.0 - Age-related osteoporosis without current pathological fracture Creatinine, 24 Hr Group Today E21.3 - Hyperparathyroidism, unspecified, M81.0 - Age-related osteoporosis without current pathological fracture Collagen Type I C-Telopeptide Today E21.3 - Hyperparathyroidism, unspecified, M81.0 - Age-related osteoporosis without current pathological fracture TSH reflex Free T4 Today E21.3 - Hyperparathyroidism, unspecified, M81.0 - Age-related osteoporosis without current pathological fracture XR DEXA appendicular skeleton Today E21.3 - Hyperparathyroidism, unspecified, M81.0 - Age-related osteoporosis without current pathological fracture Sodium, 24Hr Urine Group Today E21.3 - Hyperparathyroidism, unspecified, M81.0 - Age-related osteoporosis without current pathological fracture Patient Instructions: Increase your intake of calcium to 2-3 servings of calcium rich foods daily such as milk, yogurt, cheese , calcium fortified orange juice, tofu set with calcium , canned salmon with bones, collards, turnips , broccoli, spinach, kale Continue vitamin D 1000 units daily After doing this for 8 weeks do testing as below Do 24 hr urine collection and the same day as you hand in the urine do fasting blood work 24 hr urine collection instructions You have been asked to collect your urine for 24 hours to assess for calcium excretion. You must choose a 24 hour period of time when you will be home. The morning of the first day, DISCARD the FIRST morning void and then note the time. You will collect every single void from then on for 24 hours. For example, if you wake up at 6am and urinate, flush down that void. You will then collect every drop of urine all day and all night through 6am the following day. You will urinate one last time at 6am for the collection. The jug of urine must be kept in the refrigerator until you bring it to the lab. Do bone density scan, someone will call you to schedule this Do kidney ultrasound, someone will call you to schedule this Coding Level of Care Code New Pt Level 5 (80179) Diagnoses Hyperparathyroidism E21.3 Age-related osteoporosis without current pathological fracture M81.0 Osteoporosis type: age-related Presence of current pathological fracture: without current pathological fracture Time Spent (min) 60
== END 2025-03-18 13:48 | disposition home or self-care (01) ==
LOC: HO.ENCR 12:57
PROVIDERS: PCP Internal Medicine; Visit Provider Student in an Organized Health Care Education/Training Program
DX: E21.3 Hyperparathyroidism, unspecified (principal); M81.0 Age-related osteoporosis without current pathological fracture
CPT/HCPCS: 99205

== ENCOUNTER → 2025-03-18 12:56 | Outpatient (BNVA) | payer MEDICARE, SELFPAY | PROVIDERS: PCP Internal Medicine; Visit Provider Student in an Organized Health Care Education/Training Program | DX: M81.0 Age-related osteoporosis without current pathological fracture (principal); E21.3 Hyperparathyroidism, unspecified | CPT/HCPCS: 99202 ==

== ENCOUNTER 2025-04-22 11:10 | Outpatient (REF) | payer MEDICARE, SELFPAY ==
--- NOTE | ~2025-04-22 | MM_ITS ---
EXAMINATION: DXA BONE DENSITY EXTREMITY HISTORY: E21.3 - Hyperparathyroidism, unspecified TECHNIQUE: SFOX Dual energy absorptiometry (DEXA) of the lumbar spine, total right hip, femoral neck, and distal radius was performed. COMPARISON: Comparison is made with the prior examination dated 05/29/2018. FINDINGS: The bone mineral density of the lumbar spine is 1.078 g/cm2, corresponding to a T-score of -0.8, and a Z-score of 1.3. This is indicative of normal bone mineral density. This represents a BMD change of -11.2% compared to the prior exam. This is statistically significant. The bone mineral density of the right total hip is 0.708 g/cm2, corresponding to a T-score of -24, and a Z-score of -0.2. This is indicative of osteopenia. This represents a BMD change of -13.0% compared to the prior exam. This is statistically significant. The bone mineral density of the right femoral neck is 0.641 g/cm2, corresponding to a T-score of -2.9, and a Z-score of -0.5. This is indicative of osteoporosis. This represents a BMD change of -10.2% compared to the prior exam. The bone mineral density of the left femoral neck is 0.484 g/cm2, corresponding to a T-score of -4.5, and a Z-score of -1.8. This is indicative of osteoporosis. MM/XR DEXA appendicular skeleton IMPRESSION: Based on bone mineral density, and according to World Health Organization (WHO) criteria, the diagnosis is consistent with osteoporosis. Statistically, 68% of repeat scans fall within 1 SD (+/- 0.010 g/cm2 for AP spine L1-L4) and 1 SD (+/- 0.012 g/cm2 for femur total) FRAX is a trademark of the [employer] [employer] Met[employer], a World Health Organization (WHO) Collaborating Center. Electronically signed by: Jesus Bautista MD 04/22/2025 12:25 PM EDT
--- OUTSIDE RECORDS SUMMARY | 2025-04-22 12:34 | XMS_ITS | Patient Health Record ---
Author Organization [facility] Address [address] [place] [id number] Care Team Providers Care Metal Tank Builder Name Role Phone Jesus Lombardo Unavailable [phone] Reason For Referral No Information Plan Of Treatment No Information
== END 2025-04-22 11:11 | disposition home or self-care (01) ==
LOC: HO.MAMMO 11:10
PROVIDERS: PCP Internal Medicine; Visit Provider Student in an Organized Health Care Education/Training Program
DX: M81.0 Age-related osteoporosis without current pathological fracture (principal); E21.3 Hyperparathyroidism, unspecified
CPT/HCPCS: 77081

== ENCOUNTER → 2025-04-22 11:30 | Outpatient (BNV) | payer MEDICARE, SELFPAY | PROVIDERS: PCP Internal Medicine; Visit Provider Radiology Diagnostic Radiology | DX: E28.39 Other primary ovarian failure (principal) | CPT/HCPCS: 77081 ==

== ENCOUNTER 2025-04-28 13:06 | Outpatient (REF) | payer MEDICARE, SELFPAY ==
--- NOTE | ~2025-04-28 | US_ITS ---
EXAMINATION: US KIDNEY BILATERAL HISTORY: E21.3 - Hyperparathyroidism, unspecified TECHNIQUE: Real-time grayscale ultrasound imaging of the kidneys was performed and images were reviewed. COMPARISON: Correlation is made with a CT of the abdomen without contrast dated 10/30/2024. FINDINGS: Right kidney: The right kidney measures 8.6 x 4.3 x 5.0 cm. Renal parenchymal echotexture and thickness are normal. There are no masses. There is no hydronephrosis or renal calculi. Left Kidney: The left kidney measures 9.0 x 3.8 x 3.7 cm. Renal parenchymal echotexture and thickness are normal. There are no masses. There is no hydronephrosis or renal calculi. US/US renal BI IMPRESSION: Unremarkable renal ultrasound. Electronically signed by: Jesus Bautista MD 04/28/2025 01:40 PM EDT
--- OUTSIDE RECORDS SUMMARY | 2025-04-28 13:52 | XMS_ITS | Patient Health Record ---
Author Organization [facility] Address [address] [place] [id number] Care Team Providers Care Revenue Enforcement Collection Agent Name Role Phone Jesus Lombardo Unavailable [phone] Reason For Referral No Information Plan Of Treatment No Information
== END 2025-04-28 13:07 | disposition home or self-care (01) ==
LOC: HO.US 13:06
PROVIDERS: PCP Internal Medicine; Visit Provider Student in an Organized Health Care Education/Training Program
DX: E21.3 Hyperparathyroidism, unspecified (principal); M81.0 Age-related osteoporosis without current pathological fracture
CPT/HCPCS: 76775

== ENCOUNTER → 2025-04-28 13:30 | Outpatient (BNV) | payer MEDICARE, SELFPAY | PROVIDERS: PCP Internal Medicine; Visit Provider Radiology Diagnostic Radiology | DX: E21.3 Hyperparathyroidism, unspecified (principal) | CPT/HCPCS: 76775 ==

== ENCOUNTER 2025-05-05 10:28 | Outpatient (REF) | payer MEDICARE, SELFPAY ==
--- OUTSIDE RECORDS SUMMARY | 2025-05-05 11:37 | XMS_ITS | Patient Health Record ---
Author Organization [facility] Address [address] [place] [id number] Care Team Providers Care Director Gift Name Role Phone Jesus Lombardo Unavailable [phone] Reason For Referral No Information Plan Of Treatment No Information
[2025-05-05 12:26] LABS: Parathyroid Hormone Intact 138.7 pg/mL (8.7-77.1)
[2025-05-05 12:37] LABS: Albumin Level 4.5 g/dL (3.5-5.0); Calcium 9.8 mg/dL (8.4-10.2); Estimated Glomerular Filt Rate > 60
[2025-05-05 12:48] LABS: Total Volume 24 Hour Urine 1500 mL
[2025-05-05 12:49] LABS: Total Volume 24 Hour Urine 1500 mL
[2025-05-05 12:54] LABS: Creatinine, mg/dL 48.27
[2025-05-05 12:55] LABS: Creatinine, mg/dL 47.04; Sodium, 24 Hr Urine 77.0 mmol/L
[2025-05-06 16:03] LABS: Calcium, Ionized 5.4 mg/dL (4.7-5.5)
[2025-05-07 16:39] LABS: Calcium/Creatinine Ratio 154 mg/g creat (30-275); Creatinine 24Hr Urine 0.78 g/24 h (0.50-2.15)
[2025-05-08 21:23] LABS: Prot Elec - Albumin 4.1 g/dL (3.8-4.8); Prot Elec - Alpha1 0.2 g/dL (0.2-0.3); Prot Elec - Alpha2 0.8 g/dL (0.5-0.9); Prot Elec - Beta 1 0.4 g/dL (0.4-0.6); Prot Elec - Beta 2 0.3 g/dL (0.2-0.5); Prot Elec - Gamma 0.6 g/dL (0.8-1.7); Prot Elec - Total Protein 6.4 g/dL (6.1-8.1)
== END 2025-05-05 10:29 | disposition home or self-care (01) ==
LOC: HO.LAB 10:28
PROVIDERS: PCP Internal Medicine; Visit Provider Student in an Organized Health Care Education/Training Program
DX: M81.0 Age-related osteoporosis without current pathological fracture (principal); E21.3 Hyperparathyroidism, unspecified
CPT/HCPCS: 36415; 82040; 82306; 82310; 82330; 82340; 82523; 82565; 82570; 82784; 83970; 84075; 84100; 84165; 84300; 84443; 86334

== ENCOUNTER 2025-06-03 12:15 | Outpatient (AMB) | payer MEDICARE, SELFPAY ==
--- NOTE | 2025-06-03 12:34 | A.OFFVIS_ITS ---
Vital Signs 06/03/25 12:35 Height 4 ft 11 in Weight 125 lb 14.143 oz BMI 25.4 BP 170/76 H Blood Pressure Location Lt brachial Position Sitting Pulse 51 Pulse Source Pulse Oximeter Pulse Oximetry (%) 97 Oxygen Delivery Method Room Air Intake Visit Reasons: Hyperparathyroidism Intake Note: Patient present today for Hyperparathyroidism office visit. Registered Medical Transcriptionist Required: No Accompanied by: Self / Same As Patient Allergies No Known Allergies (No Known Allergies*) Allergy (Verified 06/03/25 12:39) Medication List - Last Reconciled 06/03/25 by Merry Sanchez MD cholecalciferol (vitamin D3) 25 mcg PO DAILY levothyroxine 75 mcg PO DAILY losartan 25 mg PO DAILY simvastatin 20 mg PO DAILY HPI Comments Details: 79-year-old female coming in today for for follow up of elevated PTH level. HPI Chart review shows that patient has had borderline high calcium levels since 2018 with calcium levels ranging anywhere from 9.5 to 10.8, however her albumin level has ranged anywhere from 4.1-4.4, corrected calcium would be somewhere around 9.6 to 10.5. Most recent labs from October 2024 showed calcium of 9.8, albumin of 4.2, corrected calcium would be 9.6, magnesium normal at 2.1, normal kidney function, vitamin-D from September 2024 was 43 point with a calcium of 9.9, back in June 2024 she was found to have PTH high at 118 point 6 when calcium was 10.3 with albumin of 4.2, corrected calcium would be 10.1. No kidney stones Fracture history : 2017 left hip fracture, fell from standing height. neck fracture falling from slide when she was 5. DEXA May 2018 : L1-L4 -1.2 spine osteopenia decrease of -1.4 percent compared to 2014, right femur neck -2.3 , right total -1.5 , decrease of 10.7% , Frax score 22.2 % major osteo and 5.7 % hip Family history : no calcium problems , or kidney stones No parent fractured hip Vitamin D: 1000 units daily Calcium :no supplements Milk : none, yogurt: none, cheese: barely Green leafy vegetables: not much No muscle aches or pains, no abd pain , does have memory issues , no brain fog Osteoporosis risk factures Never smoker No alcohol No steroids No long periods of immobilization No PPI No RA No seizure medications, no heparin use No chronic inflammatory lung or bowel disease Dentist: years ago, denies any pain in teeth 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 Managed by PCP. Interval history 06/03/2025 04/22/2025: DEXA scan showed normal bone density of the spine with a T-score of - 0.8, osteopenia of the right total hip with T-score of-2.4, osteoporosis of the right femoral neck with T-score of-2.9, osteoporosis of the left forearm with T- score of-4.5. 04/28/2025: Renal ultrasound without any kidney stones 05/05/2025: Normal kidney function with a EGFR greater than 60, calcium of 9.8, albumin of 4.5, corrected calcium would be 9.3, ionized calcium 5.4, phosphorus 3.4, protein electrophoresis showed hypogammaglobulinemia however normal immunofixation study with no monoclonal proteins, vitamin-D 43.7, TSH 0.67, PTH 138.7, CTX 460, bone specific alkaline phosphatase of 13.9, 24 hour urine calcium level of 120 with a low creatinine, normal calcium creatinine ratio of 154, fractional excretion of calcium 0.014 Physical exam General: sitting comfortably in no acute distress HEENT: normocephalic/atraumatic Neck: supple, symmetrical Cardiac: normal heart sounds Pulm: normal breath sounds B/L, no added breath sounds Abd: not distended, no tenderness Extremities: no edema, no signs of myxedema Laboratory Tests 12/18/18 06/17/19 12/03/19 12:40 11:25 11:38 Creatinine Estimated GFR Calcium 10.4 H 9.9 10.0 Magnesium Albumin 4.4 4.3 4.2 25-OH Vitamin D Total TSH Free T4 PTH Intact 08/11/20 02/11/21 11/17/21 11:25 10:25 10:20 Creatinine Estimated GFR Calcium 9.5 10.1 D 10.2 Magnesium Albumin 4.2 4.3 4.1 25-OH Vitamin D Total TSH Free T4 PTH Intact 07/22/22 08/07/23 01/15/24 09:05 12:05 13:08 Creatinine Estimated GFR Calcium 9.6 10.8 H D 10.5 H Magnesium Albumin 4.1 4.3 25-OH Vitamin D Total 63.0 TSH Free T4 PTH Intact 101.6 H 06/12/24 09/18/24 10/29/24 10:18 09:40 18:51 Creatinine 0.82 Estimated GFR > 60 Calcium 10.3 H 9.9 9.8 Magnesium 2.1 Albumin 4.2 4.2 25-OH Vitamin D Total 43.2 TSH 0.81 Free T4 1.25 PTH Intact 118.6 H EXAMINATION: DXA BONE DENSITY EXTREMITY 04/22/25 HISTORY: E21.3 - Hyperparathyroidism, unspecified TECHNIQUE: [employer] Dual energy absorptiometry (DEXA) of the lumbar spine, total right hip, femoral neck, and distal radius was performed. COMPARISON: Comparison is made with the prior examination dated 05/29/2018. FINDINGS: The bone mineral density of the lumbar spine is 1.078 g/cm2, corresponding to a T-score of -0.8, and a Z-score of 1.3. This is indicative of normal bone mineral density. This represents a BMD change of -11.2% compared to the prior exam. This is statistically significant. The bone mineral density of the right total hip is 0.708 g/cm2, corresponding to a T-score of -24, and a Z-score of -0.2. This is indicative of osteopenia. This represents a BMD change of -13.0% compared to the prior exam. This is statistically significant. The bone mineral density of the right femoral neck is 0.641 g/cm2, corresponding to a T-score of -2.9, and a Z-score of -0.5. This is indicative of osteoporosis. This represents a BMD change of -10.2% compared to the prior exam. The bone mineral density of the distal forearm is 0.484 g/cm2, corresponding to a T-score of -4.5, and a Z-score of -1.8. This is indicative of osteoporosis. MM/XR DEXA appendicular skeleton IMPRESSION: Based on bone mineral density, and according to World Health Organization (WHO) criteria, the diagnosis is consistent with osteoporosis. EXAMINATION: US KIDNEY BILATERAL 04/28/25 HISTORY: E21.3 - Hyperparathyroidism, unspecified TECHNIQUE: Real-time grayscale ultrasound imaging of the kidneys was performed and images were reviewed. COMPARISON: Correlation is made with a CT of the abdomen without contrast dated 10/30/2024. FINDINGS: Right kidney: The right kidney measures 8.6 x 4.3 x 5.0 cm. Renal parenchymal echotexture and thickness are normal. There are no masses. There is no hydronephrosis or renal calculi. Left Kidney: The left kidney measures 9.0 x 3.8 x 3.7 cm. Renal parenchymal echotexture and thickness are normal. There are no masses. There is no hydronephrosis or renal calculi. US/US renal BI IMPRESSION: Unremarkable renal ultrasound. Electronically signed by: Jesus Bautista MD 04/28/2025 01:[address] abdomen and pelvis without contrast October 2024 Comparison: CT/SR - PELVIS WITHOUT CONTRAST [id number] - 06/20/17 17:04 EDT Findings: No consolidation or effusion. Cholelithiasis. Abdominal solid organs unremarkable. No urolithiasis. No bowel obstruction, pneumoperitoneum, or pneumatosis. Moderate stool. Appendix not identified. 1.5 cm right ovarian cyst, previously 2.1 cm. Uterus and ovaries otherwise unremarkable. No ascites. Left subcapital femoral neck fracture is old with screw fixation. No hardware complications. IMPRESSION: 1. No ventral hernia. 2. Cholelithiasis without acute cholecystitis. 3. Small right ovarian cyst. Recommend yearly ultrasound follow-up. This document has been electronically signed by: Juanito López MD on 10/30/2024 01:11:33 [facility] Medical History (Updated 03/18/25 @ 13:55 by Merry Sanchez MD) Osteoporosis Essential hypertension Hyperlipidemia Hyperparathyroidism Hypothyroidism Cataract High cholesterol High blood pressure Surgical History Hx of colonoscopy History of hip surgery Hx of appendectomy Family History Father Heart attack Mother No problems noted. Social History Housing: House Are you a primary career placement services counselor to a significant other at home: No Do you presently have visiting nurse or other home services: No Patient Tobacco Use Status: Never used Tobacco e-Cigarette/Vaping Use: Never Used service: No Current occupational status: retired Current occupation: rt handed Cognitive needs: No Hearing needs: No Vision needs: Yes (reading glasses) Assessment & Plan Assessment & Plan (1) Hyperparathyroidism: Code(s): E21.3 - Hyperparathyroidism, unspecified Category: Medical Plan: 79-year-old female coming in today for initial evaluation of PTH mediated hypercalcemia and osteoporosis. Chart review shows that patient has had borderline high calcium levels since with calcium levels ranging anywhere from 9.5 to 10.8, however her albumin level has ranged anywhere from 4.1-4.4, corrected calcium would be somewhere around 9.6 to 10.5. Most recent labs from October 2024 showed calcium of 9.8, albumin of 4.2, corrected calcium would be 9.6, magnesium normal at 2.1, normal kidney function, vitamin-D from September 2024 was 43 point with a calcium of 9.9, back in June 2024 she was found to have PTH high at 118 point 6 when calcium was 10.3 with albumin of 4.2, corrected calcium would be 10.1. Given normal kidney function and normal vitamin-D levels this is not secondary hyperparathyroidism. Most recent bone density scan showed osteoporosis of the hip with a right femoral neck T-score of -2.9, osteoporosis of the forearm left forearm T-score of -4.5. While cortical bone loss as possibly another indication for underlying hyperparathyroidism, given her age, plus no other surgical indication given no hypercalciuria, kidney function is normal, no kidney stones detected on renal ultrasound in April 2025, normal calcium levels I do not feel very strongly about considering surgery in her case. In patients with normocalcemic hyperparathyroidism, sometimes PTH elevations sustain even after surgery. At this time I would start treatment for osteoporosis. Her risk factors for osteoporosis are age, being postmenopausal, likely underlying primary hyperparathyroidism, poor nutritional intake of calcium. She is not up-to-date with dental care. She would be a good candidate for a more potent agent especially given such low T-score of-4.5+ prior history of fragility fracture all consistent with severe osteoporosis. I would put her on a strong anabolic agent such as Evenity. She would not be a good candidate for Tymlos or Forteo given underlying possibility of hyperparathyroidism which could result in hypercalcemia/hypercalciuria. Her CTX is not very elevated, so I do not think antiresorptives would help her much, though I did talk to her today about Prolia also as a possible 2nd agent. Anabolic works best on treatment naive bone plus bisphosphonates or Prolia would not treat her to target as recommended by the Endocrine society guidelines. Evenity would be the most suitable agent for her. I counseled regarding the mechanism of action, route of administration, common side effects as well as black box warnings particularly osteonecrosis of the jaw and atypical femur fracture. Pros and cons discussed including black box warning of increased cardiac events 1% absolute risk -He has not had a cardiac event or stroke and he is relatively in good shape I.e. no hypertension hyperlipidemia or diabetes -Other side effects of arthralgia headaches hypocalcemia discussed Osteonecrosis of the jaw and atypical femur fracture is un likely At this time patient is not up-to-date with dental care and I recommended her to see the dentist. She said she is very scared of seeing dentist. Also she at this time after all this discussion would like to hold off on treatment because she is apprehensive of the side effects. She would like to continue with conservative management. In that case I told her her primary care physician can continue to monitor her bone densities every 2 years with conservative recommendations from us. If she changes her mind about starting medication she can make an appointment with us. Plan: -if you change your mind about treatment for osteoporosis, schedule appointment with us -in the meantime continue conservative management as below -continue vitamin-D 1000 units daily -continue to incorporate 2-3 servings of calcium rich foods in diet daily -weight-bearing exercise discussed -primary care can repeat bone density every 2 years (2) Osteoporosis: Code(s): M81.0 - Age-related osteoporosis without current pathological fracture Category: Medical Qualifiers: Osteoporosis type: age-related Presence of current pathological fracture: without current pathological fracture Qualified Code(s): M81.0 - Age- related osteoporosis without current pathological fracture Plan: At this time I would start treatment for osteoporosis. Her risk factors for osteoporosis are age, being postmenopausal, likely underlying primary hyperparathyroidism, poor nutritional intake of calcium. She is not up-to-date with dental care. I discussed conservative measures including adequate calcium intake, adequate vitamin D levels as well as the role of weightbearing exercises in general being good for bone health. She would be a good candidate for a more potent agent especially given such low T-score of-4.5+ prior history of fragility fracture all consistent with severe osteoporosis. I would put her on a strong anabolic agent such as Evenity. She would not be a good candidate for Tymlos or Forteo given underlying possibility of hyperparathyroidism which could result in hypercalcemia/hypercalciuria. Her CTX is not very elevated, so I do not think antiresorptives would help her much, though I did talk to her today about Prolia also as a possible 2nd agent. Anabolic works best on treatment naive bone plus bisphosphonates or Prolia would not treat her to target as recommended by the Endocrine society guidelines. Evenity would be the most suitable agent for her. I counseled regarding the mechanism of action, route of administration, common side effects as well as black box warnings particularly osteonecrosis of the jaw and atypical femur fracture. Pros and cons discussed including black box warning of increased cardiac events 1% absolute risk -He has not had a cardiac event or stroke and he is relatively in good shape I.e. no hypertension hyperlipidemia or diabetes -Other side effects of arthralgia headaches hypocalcemia discussed Osteonecrosis of the jaw and atypical femur fracture is un likely At this time patient is not up-to-date with dental care and I recommended her to see the dentist. She said she is very scared of seeing dentist. Also she at this time after all this discussion would like to hold off on treatment because she is apprehensive of the side effects. She would like to continue with conservative management. In that case I told her her primary care physician can continue to monitor her bone densities every 2 years with conservative recommendations from us. If she changes her mind about starting medication she can make an appointment with us. Plan: -if you change your mind about treatment for osteoporosis, schedule appointment with us -in the meantime continue conservative management as below -continue vitamin-D 1000 units daily -continue to incorporate 2-3 servings of calcium rich foods in diet daily -weight-bearing exercise discussed -primary care can repeat bone density every 2 years Plan I spent 30 minutes in reviewing the record, seeing the patient and documenting in the medical record. Patient Instructions: continue vitamin-D 1000 units daily -continue to incorporate 2-3 servings of calcium rich foods in diet daily -weight-bearing exercise discussed see the dentist Coding Level of Care Code Est Pt Level 4 (77573) Diagnoses Hyperparathyroidism E21.3 Age-related osteoporosis without current pathological fracture M81.0 Osteoporosis type: age-related Presence of current pathological fracture: without current pathological fracture Time Spent (min) 30
[2025-06-03 12:35] VITALS: BP 170/76; PULSE 51; O2SAT 97; BMI 25.4
--- OUTSIDE RECORDS SUMMARY | 2025-06-03 13:07 | XMS_ITS | Patient Health Record ---
Author Organization [facility] Address [address] [place] [id number] Care Team Providers Care Cash Accountant Name Role Phone Jesus Lombardo Unavailable [phone] Reason For Referral No Information Plan Of Treatment No Information
== END 2025-06-03 12:53 | disposition home or self-care (01) ==
LOC: HO.ENCR 12:16
PROVIDERS: PCP Internal Medicine; Visit Provider Student in an Organized Health Care Education/Training Program
DX: E21.3 Hyperparathyroidism, unspecified (principal); M81.0 Age-related osteoporosis without current pathological fracture
CPT/HCPCS: 99214

== ENCOUNTER → 2025-06-03 12:15 | Outpatient (BNVA) | payer MEDICARE, SELFPAY | PROVIDERS: PCP Internal Medicine; Visit Provider Student in an Organized Health Care Education/Training Program | DX: M81.0 Age-related osteoporosis without current pathological fracture (principal); E21.3 Hyperparathyroidism, unspecified | CPT/HCPCS: 99212 ==

== ENCOUNTER 2025-07-28 12:49 | Outpatient (AMB) | payer MEDICARE, SELFPAY ==
[2025-07-28 12:43] VITALS: BP 140/82; PULSE 60; TEMP 36.4; O2SAT 98; BMI 25.5
--- NOTE | 2025-07-28 12:43 | A.OFFPC_ITS ---
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 Accompanied by: Self / Same As Patient Allergies No Known Allergies (No Known Allergies*) Allergy (Verified 07/28/25 12:43) Medication List - Last Reconciled 07/28/25 by Juan Antonio Meehan MD cholecalciferol (vitamin D3) 25 mcg PO DAILY levothyroxine 75 mcg PO DAILY losartan 25 mg PO DAILY 90 days simvastatin 20 mg PO DAILY Tobacco use date assessed: 07/28/25 Fall risk assessment: No Falls in past year Last assessed Fall Risk: 07/28/25 Dental Screening Dental Screen Date: 07/28/25 Did you have a dental visit in the last 12 months?: No Did you have a dental problem in the last 6 months where you did not have access to dental care?: No HPI HPI Comments History of Present Illness Details The patient is an 80-year-old female presenting with symptoms primarily concerning her hands, suspected to be related to carpal tunnel syndrome, and longstanding back issues. The patient reports numbness and pain in her first two and a half fingers bilaterally, primarily occurring at night or after prolonged computer use. The patient does not currently experience associated muscle weakness. She previously received injections to help manage her hand symptoms, which she associates with a family history of Dupuytren's Contracture. Additionally, the patient describes chronic discomfort in her back, which worse ns with prolonged activity. The back pain is centered in the mid to lower back and has been present for many years. She is aware of her diagnosis of osteoporosis and takes precautions to mitigate the risk of fractures. The patient also notes visual disturbances characterized by seeing floaters, which she attributes to past cataracts for which she underwent surgery approximately two years ago. She has a follow-up scheduled with an sharepoint application developer. Her hypertension appears to be well-controlled with Losartan, with elevated blood pressure possibly attributed to situational anxiety during the office visit. Her hyperparathyroidism is currently stable without intervention other than dietary calcium, initiated due to previous deficiencies. The patient is on maintenance therapy with Levothyroxine for hypothyroidism and Simvastatin for hyperlipidemia. Medical History: - Carpal Tunnel Syndrome - Degenerative Disc Disease (Back Pain) - Osteoporosis - Hyperparathyroidism - Cataracts, status post-surgery - Hypertension - Hyperlipidemia - Hypothyroidism Surgical History: - Cataract surgery Medications: - Levothyroxine for Hypothyroidism - Losartan 25 mg for Hypertension - Simvastatin for Hyperlipidemia - Vitamin D, 2000 IU every other day for Osteoporosis Family History: - Family history of Dupuytren's Contract ure (father and brother) Social History: - Exercises caution and uses railings fo r support due to osteoporosis - Engages in computer use which exacerba pati hand symptoms PFSH Medical History (Updated 07/28/25 @ 13:14 by Juan Antonio Meehan MD) Carpal tunnel syndrome Osteoporosis Essential hypertension Hyperlipidemia Hyperparathyroidism Hypothyroidism Cataract High cholesterol High blood pressure Surgical History Hx of colonoscopy History of hip surgery Hx of appendectomy Family History (Updated 07/28/25 @ 12:56 by Sara Pham MA) Father Heart attack Mother No problems noted. Social History Housing: House Are you a primary medical care manager to a significant other at home: No Do you presently have visiting nurse or other home services: No Patient Tobacco Use Status: Never used Tobacco e-Cigarette/Vaping Use: Never Used service: No Current occupational status: retired Current occupation: rt handed Cognitive needs: No Hearing needs: No Vision needs: Yes (reading glasses) Questionnaire PHQ-9 Over the last 2 weeks, how often have you been bothered by any of the following problems? 1. Little interest or pleasure in doing things: not at all 2. Feeling down, depressed, or hopeless: nearly every day (only stress) 3. Trouble falling or staying asleep, or sleeping too much: not at all 4. Feeling tired or having little energy: not at all 5. Poor appetite or overeating: not at all 6. Feeling bad about yourself - or that you are a failure or have let yourself or your family down: not at all 7. Trouble concentrating on things, such as reading the newspaper or watching television: not at all 8. Moving or speaking so slowly that other people could have noticed. Or the opposite - being so fidgety or restless that you have been moving around a lot more than usual: not at all 9. Thoughts that you would be better off or of hurting yourself in some way: not at all Total score: 3 Source: Developed by Drs. Jesus Miranda, Neftali Dorado and colleagues, with an educational isaac from [email or web address]. Thrive Questionnaire Date Thrive assessed: 07/28/25 I am a: Patient Within the past 12 months, did the food you bought not last and you didn't have the money to get more?: Never true Within the past 12 months, did you worry whether your food would run out before you got money to buy more?: Never true Do you have trouble paying for medicines?: No Do you have trouble getting transportation to medical appointments?: No Do you have trouble paying your heating and electricity bill?: No Do you have trouble taking care of your child, family member or friend?: No Do you have trouble with day-to-day activities such as bathing, preparing meals, shopping, managing finances, etc.?: No Are you currently unemployed and looking for a job?: No Are you interested in more education?: No THRIVE Score: 0 AUDIT C Alcohol Use Questionnaire (AUDIT-C) 1. How often do you have a drink containing alcohol?: Never 3. How often do you have six or more drinks on one occasion?: Never Total Score: 0 ROXANA-7 AMB Questionnaire ROXANA-7 Date ROXANA - 7 assessed: 07/28/25 Feeling nervous, anxious, or on edge: 0 = Not at all Not being able to stop or control worryin = Not at all Worrying too much about different things: 0 = Not at all Trouble relaxin = Not at all Being so restless that it is hard to sit still: 0 = Not at all Becoming easily annoyed or irritable: 0 = Not at all Feeling afraid as if something awful might happen: 0 = Not at all Total ROXANA-7 score (0-4 normal; 5-9 mild; 10-14 moderate; 15-21 severe): 0 Source: Developed by Drs. eJsus Miranda, Galilea Beltran, Neftali East and colleagues, with an educational isaac from [email or web address]. Review of Systems Narrative - Neurology: Reports hand numbness, denies muscle weakness - Musculoskeletal: Reports back pain - Ophthalmology: Reports visual floaters - General: Denies nausea, vomiting, chest pain, shortness of breath, headaches, other vision changes All systems reviewed & are unremarkable except as reviewed in HPI and above Physical exam (Primary Care) Vital Signs: Last Vital Signs Temp 97.6 F 07/28/25 12:43 Pulse 60 07/28/25 12:43 BP 140/82 H 07/28/25 12:43 Pulse Ox 98 07/28/25 12:43 Oxygen Delivery Method Room Air 07/28/25 12:43 BMI result Body Mass Index 25.5 Tobacco/Smoking Status: Tobacco use Status Tobacco use date assessed 07/28/25 07/28/25 12:44 Patient Tobacco Use Status Never used Tobacco 07/28/25 12:44 e-Cigarette/Vaping Use Never Used 07/28/25 12:44 PHQ-9: PHQ-9 Score PHQ-9: Total score 3 07/28/25 12:57 Thrive Assessment: Date of Thrive Assessment Date Thrive assessed 07/28/25 07/28/25 12:44 Narrative General: Alert and oriented, Well nourished, No acute distress. Eye: Pupils are equal, round and reactive to light, Intact accommodation, Extraocular movements are intact, Normal conjunctiva, Vision with floaters. HENT: Normocephalic, Atraumatic, Tympanic membranes are clear, Normal hearing, Oral mucosa is moist, No pharyngeal erythema, Ear canals patent. Respiratory: Lungs CTA bilaterally, No wheeze, Respirations are non-labored. Cardiovascular: Regular rate, Regular rhythm, S1 auscultated, S2 auscultated, No murmur, Good pulses equal in all extremities, Normal peripheral perfusion, No edema, Blood pressure 140/82. Gastrointestinal: Soft, Non-tender, Non-distended, Normal bowel sounds, No organomegaly. Musculoskeletal: Normal range of motion, Normal strength, No tenderness, No swelling, No deformity, Normal gait, Reports mid and lower back pain when walking too much. Integumentary: Warm, Dry, [place], Intact. Neurologic: Alert, Oriented, Normal sensory, Normal motor function, No focal defects, Cranial Nerves II-XII are grossly intact, Normal deep tendon reflexes, Reports numbness in first two and a half fingers of the hand, Trigger finger on the left hand. Psychiatric: Cooperative, Appropriate mood & affect, Normal judgment. Coding Level of Care Code Est Pt Level 4 (92255) Complex EM visit Add On G2211 Diagnoses Essential hypertension I10 Other hyperlipidemia E78.49 Hyperlipidemia type: other hyperlipidemia Age-related osteoporosis without current pathological fracture M81.0 Osteoporosis type: age-related Presence of current pathological fracture: without current pathological fracture Hyperparathyroidism E21.3 Carpal tunnel syndrome of right wrist G56.01 Laterality: right Other specified hypothyroidism E03.8 Hypothyroidism type: other Assessment & Plan Assessment & Plan (1) Essential hypertension: Comment: - Monitoring blood pressure at home is recommended. - Re-evaluate blood pressure management in six months. Code(s): I10 - Essential (primary) hypertension Category: Medical (2) Hyperlipidemia: Comment: - Continue current simvastatin therapy Code(s): E78.5 - Hyperlipidemia, unspecified Category: Medical Qualifiers: Hyperlipidemia type: other hyperlipidemia Qualified Code(s): E78.49 - Other hyperlipidemia (3) Osteoporosis: Comment: - Continue current vitamin D supplementation. - Emphasize the importance of safety measures to prevent falls and fractures. Code(s): M81.0 - Age-related osteoporosis without current pathological fracture Category: Medical Qualifiers: Osteoporosis type: age-related Presence of current pathological fracture: without current pathological fracture Qualified Code(s): M81.0 - Age- related osteoporosis without current pathological fracture (4) Hyperparathyroidism: Comment: - Currently stable and monitored without active intervention. - Discussed the importance of maintaining calcium intake. Code(s): E21.3 - Hyperparathyroidism, unspecified Category: Medical (5) Carpal tunnel syndrome: Comment: - Recommend dqal-syj-qctfwen wrist splint use during nighttime and activities that exacerbate symptoms. - Advised monitoring for muscle weakness or worsening symptoms, with a potential referral to orthopedics if conditions deteriorate. Code(s): G56.00 - Carpal tunnel syndrome, unspecified upper limb Category: Medical Qualifiers: Laterality: right Qualified Code(s): G56.01 - Carpal tunnel syndrome, right upper limb (6) Hypothyroidism: Comment: - Continue current levothyroxine therapy. - Plan for thyroid function tests during the next visit. Code(s): E03.9 - Hypothyroidism, unspecified Category: Medical Qualifiers: Hypothyroidism type: other Qualified Code(s): E03.8 - Other specified hypothyroidism Plan: Health Maintenance: - Discussed safety interventions pertinent to osteoporosis management to prevent falls. - Encouraged continued use of Vitamin D supplementation. - Encouraged routine health maintenance visits with appropriate follow-up on lab evaluations prior to appointments. Patient was informed and verbally consented to the use of an ambient scribe for clinic note documentation during this visit. Plan During the visit, I thoroughly discussed the management of the patient's carpal tunnel syndrome, recommending an hdkw-zsk-khbmatj wrist splint to help alleviate night-time symptoms. I explained the importance of monitoring for muscle weakness, as this might necessitate a referral to an orthopedic surgeon. We discussed the current approach to managing osteoporosis, focusing on the significance of safety measures to reduce fracture risks. I addressed the patient's hyperparathyroidism, hypertension, and hyperlipidemia, explaining the current therapies and the follow-up strategies, including the necessity of home blood pressure monitoring. We also reviewed the need for an ophthalmologic follow-up due to reported visual disturbances, ensuring care continuity following previous cataract surgery. Orders: Orders Complete Blood Count Auto Diff 6 Months Z00.00 - Encounter for general adult medical examination without abnormal findings Hemoglobin A1c 6 Months Z00.00 - Encounter for general adult medical examination without abnormal findings TSH reflex Free T4 6 Months Z00.00 - Encounter for general adult medical examination without abnormal findings Parathyroid Hormone Intact 6 Months E21.3 - Hyperparathyroidism, unspecified Comprehensive Met. Panel 6 Months Z00.00 - Encounter for general adult medical examination without abnormal findings Lipid Panel 6 Months Z00.00 - Encounter for general adult medical examination without abnormal findings Patient Instructions: - Use an nmwm-hky-rkfjcvl wrist splint at night for hand symptoms. - Continue taking 2000 IU Vitamin D every other day for osteoporosis. - Be cautious to prevent falls at home, hold railings when using stairs. - Monitor blood pressure at home and keep a log for the next visit. - Schedule routine blood work a week before the next appointment. - Follow up with an eye doctor in October as planned.
--- OUTSIDE RECORDS SUMMARY | 2025-07-28 15:35 | XMS_ITS | Patient Health Record ---
[facility] Address [address] [place] [id number] Care Team Providers Care Supervisor Inspection Department Name Role Phone Jesus Lombardo Unavailable [phone] Reason For Referral No Information Plan Of Treatment No Information
== END 2025-07-28 13:13 | disposition home or self-care (01) ==
PROVIDERS: PCP Student in an Organized Health Care Education/Training Program; Visit Provider Student in an Organized Health Care Education/Training Program
DX: I10 Essential (primary) hypertension (principal); E78.49 Other hyperlipidemia; M81.0 Age-related osteoporosis without current pathological fracture; E21.3 Hyperparathyroidism, unspecified; G56.01 Carpal tunnel syndrome, right upper limb; E03.8 Other specified hypothyroidism

== ENCOUNTER → 2025-07-28 12:49 | Outpatient (BNVA) | payer MEDICARE, SELFPAY | PROVIDERS: PCP Internal Medicine; Visit Provider Student in an Organized Health Care Education/Training Program | DX: I10 Essential (primary) hypertension (principal); E78.49 Other hyperlipidemia; M81.0 Age-related osteoporosis without current pathological fracture; E21.3 Hyperparathyroidism, unspecified; G56.01 Carpal tunnel syndrome, right upper limb; E03.8 Other specified hypothyroidism; Z79.899 Other long term (current) drug therapy; Z13.39 Encounter for screening examination for other mental health and behavioral disorders; Z13.30 Encounter for screening examination for mental health and behavioral disorders, unspecified | CPT/HCPCS: 96127; 99212 ==